=== PATIENT | male | born 1935 | race Caucasian/White ===

== ENCOUNTER 2017-03-08 18:17 | Inpatient (IN) ==
[2017-03-08 20:05] LABS: Hematocrit 26.1 % (41-53); Hemoglobin 8.3 GM/DL (13.5-17.5); Mean Corpuscular Hemoglobin 29.7 UUG (26-34); Mean Corpuscular Volume 93.5 UM3 (80-100); Mean Platelet Volume 8.8 UM3 (9.4-12.4); Platelet Count 35 T/MM3 (130-400); RDW Standard Deviation 60.3 FL (36.9-50.2); Red Blood Count 2.79 M/MM3 (4.50-5.90)
--- NOTE | 2017-03-08 20:06 | History & Physical Report ---
History of Present Illness Date: 03/08/17 HPI: is a 81 y.o. male with PMH significant for metastatic gastric cancer that he is undergoing chemo therapy for with . He recently had another cycle a few days ago. Pt presented to [facility] with n/v/d for 1-2 days and also had pancytopenia on labs. was notified and he recommended pt be transferred to [facility] [place] so oncology team could follow along. This evening pt reports he's feeling okay. Reports 3-4 diarrhea events per day in the last 1-2 days and the more coughing with sputum production the vomiting. Denies any cp, sob, f/c. Reports he's been eating well. Review of Systems Review of systems: 12 point ros negative other then what is noted in HPI PFSH Patient Stated Medical History Dental Problems Yes: dentures are loose, Dysphagia Yes Hypertension Yes Asthma Yes Ulcer Yes: couple of years ago Hx Urinary Tract Infection Yes Anemia Yes Shingles Yes Blood Transfusions Yes Chemotherapy Yes Other Yes: [facility] Gastric Cancer - Social History Smoking status: Former smoker Medications Home Medications Medication Instructions Recorded Confirmed Type Amlodipine [Norvasc] 5 mg PO DAILY 03/08/17 03/08/17 History Calcium Carbonate 600 mg PO DAILY 03/08/17 03/08/17 History Cholecalciferol [Vitamin D-3] 1 tab PO DAILY 03/08/17 03/08/17 History Cyanocobalamin (Vitamin B-12) 1 tab PO DAILY 03/08/17 03/08/17 History [Vitamin B-12] Docusate Sodium [Colace] 2 cap PO DAILY 03/08/17 03/08/17 History Ferrous Sulfate 65 mg PO DAILY 03/08/17 03/08/17 History Hydrocodone/APAP 5/325 [[place] 1 - 2 tab PO Q4HR PRN 03/08/17 03/08/17 History 5/325] Levothyroxine Tab [Synthroid] 75 mcg PO DAILY 03/08/17 03/08/17 History Magnesium Oxide [Magnesium] 400 mg PO BIDWM 03/08/17 03/08/17 History Szird-Fwzsslu-Lxadlfkr Tablet 1 tab PO DAILY 03/08/17 03/08/17 History Potassium Chloride ER Tab [K-Dur] 1 tab PO TIDWM 03/08/17 03/08/17 History PredniSONE [Deltasone] 40 mg PO WB 03/08/17 03/08/17 History Pyridostigmine [Mestinon] 30 mg PO TID 03/08/17 03/08/17 History Tamsulosin [Flomax] 0.4 mg PO HS 03/08/17 03/08/17 History Allergies Allergy/AdvReac Type Severity Reaction Status Date / Time No Known Allergies Allergy Verified 03/08/17 19:25 Exam Vital Signs: Temp Pulse Resp BP Pulse Ox 101.5 F H 106 H 20 132/76 92 03/08/17 18:46 03/08/17 18:46 03/08/17 18:46 03/08/17 18:46 03/08/17 18:46 Height: 1.65 m Weight: 59.1 kg Body Mass Index: 21.7 - Constitutional Present: no acute distress, well developed - Routine HEENT Exam Head: Present: normocephalic, atraumatic Eye: Present: EOMI ENT: Present: mucous membranes moist - Routine Respiratory Exam Present: CTA bilaterally. Absent: wheezes - Routine Cardiovascular Exam Present: RRR, murmur - Routine Abdominal Exam Present: soft, non distended, non tender - Routine Extremities Exam Present: edema. Absent: cyanosis, clubbing - Routine Skin Exam Present: intact, dry, warm - Routine Neurological Exam Present: alert, oriented X3 Assessment and Plan Assessment and Plan: Sepsis -Fever, tachycardia and tachypneava -possibly GI as pt has diarrhea vs. resp as pt is producing some sputum -[facility] abd CT showed colitis likely related to recent chemo tx -Order-->CXR, UA, blood cx's, lactate, resp viral panel, c. diff -IV fluids, vanc + cefepime + flagyl Neutropenic Fever -ANC ~0, high risk for infection -Abx per above Pancytopenia -2/2 chemo tx -INR elevated, will order DIC panel, ldh, haptoglobin, peripheral smear -Monitor Metastatic Gastric Cancer -Follows with , discussed case with -Last chemo on 03/02 Myasthenia Gravis -Stable -On prednisone at home, will stress dose per recs to 100mg Q8H hydrocortisone -Cont. pyridostigmine Hypothyroid -Cont. home levothyroxine -Check TSH HTN -Hold home meds d/t sepsis-->amlodipine Ppx -DVT-SCDs, low plts Sepsis Assessment - Evaluation Sepsis screening result: Severe Sepsis Risk Hospital Course Summary Disclaimer: The visit summary below is not to be considered part of the above Progress Note.
[2017-03-08 20:12] LABS: PTT- Partial Thrombo Time- NMC 26.8 SEC (24-36)
[2017-03-08 20:15] LABS: ALT - NMC 31 U/L (21-72); AST - NMC 15 U/L (17-59); Albumin - NMC 2.7 G/DL (3.5-5.0); Albumin/Globulin Ratio 1.3 RATIO (1.1-2.2); Alkaline Phosphatase - NMC 68 U/L (38-126); Anion Gap 9 MEQ/L (5-15); BUN/Creatinine Ratio 20 RATIO (6-26); CO2 - Carbon Dioxide - NMC 22 MEQ/L (22-30); Chloride - NMC 112 MEQ/L (98-107); Globulin 2.1 G/DL (2.4-3.6); Glomerular Filtration Rate 93; Glucose - NMC 79 MG/DL (75-110); MAG - Magnesium - NMC 1.8 MG/DL (1.6-2.3); NA - Sodium - NMC 143 MEQ/L (134-144); Osmolality,Calculated 275 MOSM/KG (261-280); TP - Total Protein - NMC 4.8 G/DL (6.3-8.2)
[2017-03-08 20:21] LABS: White Blood Count 0.3 T/MM3 (4.5-11.0)
[2017-03-08 20:22] LABS: Potassium 2.9 MEQ/L (3.6-5)
[2017-03-08] MEDS: NS 1,000 ML IV SCH (20:38)
[2017-03-08 20:45] LABS: Total Cells Counted 25 %
[2017-03-08] MEDS ORDERED: MetroNIDAZOLE PB 500 MG/100 ML BAG IV SCH (21:00)
[2017-03-08] MEDS ORDERED: PYRIDOSTIGMINE 60 MG TABLET PO SCH (21:00)
[2017-03-08] MEDS: NS 500 ML IV SCH (21:32)
[2017-03-08] MEDS: TAMSULOSIN 0.4 MG CAPSULE PO SCH (21:35)
[2017-03-08] MEDS: HYDROCORTISONE SOD SUCC 100mg/2ml INJECTION IVP SCH (21:37)
[2017-03-08 21:44] LABS: Adenovirus Negative (Negative); Bordetella pertussis Negative (Negative); Chlamydophila pneumoniae Negative (Negative); Coronavirus 229E Negative (Negative); Coronavirus HKU1 Negative (Negative); Coronavirus NL63 Negative (Negative); Coronavirus OC43 Negative (Negative); Human Metapneumovirus Negative (Negative); Human Rhino/Enterovirus Negative (Negative); Influenza A Negative (Negative); Influenza B Negative (Negative); Mycoplasma pneumoniae Negative (Negative); Parainfluenza 1 Negative (Negative); Parainfluenza 2 Negative (Negative); Parainfluenza 3 Negative (Negative); Parainfluenza 4 Negative (Negative); QC RP Pouch Internal Passed; Respiratory Syncytial Virus Negative (Negative)
[2017-03-08 21:47] LABS: Clarity,Urine CLEAR; Color, Urine YELLOW (YELLOW); Leukocyte Esterase,Urine NEGATIVE (NEGATIVE); Nitrate,Urine NEGATIVE (NEGATIVE); Urobilinogen,Urine 0.2 EU/DL (NORMAL)
[2017-03-08 21:54] LABS: Bacteria,Urine Trace (NEGATIVE); Mucus,Urine Present; RBC,Urine 0-1 /HPF (0-3)
[2017-03-08 22:15] LABS: Stl C Diff PCR Internal Ctrls Pass
[2017-03-08] MEDS: CEFEPIME 2 GM INJECTION IV SCH (22:36)
[2017-03-08 23:56] LABS: Potassium 3.1 MEQ/L (3.6-5)
[2017-03-08 23:58] LABS: Lactate - NMC 0.7 MMOL/L (0.6-2.2)
[2017-03-09 00:17] LABS: Hematocrit 23.8 % (41-53); Hemoglobin 7.5 GM/DL (13.5-17.5); Mean Corpuscular Hemoglobin 29.5 UUG (26-34); Mean Corpuscular Volume 93.7 UM3 (80-100); Mean Platelet Volume 10.2 UM3 (9.4-12.4); RDW Standard Deviation 61.8 FL (36.9-50.2); Red Blood Count 2.54 M/MM3 (4.50-5.90)
[2017-03-09 00:18] LABS: White Blood Count 0.4 T/MM3 (4.5-11.0)
[2017-03-09 00:30] LABS: TSH - NMC 5.01 MIU/L (0.47-4.68)
[2017-03-09] MEDS: CEFEPIME 2 GM INJECTION IV SCH ×2 (01:04→03:35)
[2017-03-09] MEDS: HYDROCORTISONE SOD SUCC 100mg/2ml INJECTION IVP SCH ×3 (02:01→16:46)
[2017-03-09] MEDS: VANCOMYCIN 250mg/5ml ORAL LIQ PO SCH ×4 (02:01→20:36)
[2017-03-09] MEDS: SALINE FLUSH 10ml SYRINGE IV PRN ×2 (05:04→20:37)
[2017-03-09 05:20] LABS: Hematocrit 23.6 % (41-53); Hemoglobin 7.3 GM/DL (13.5-17.5); Mean Corpuscular Hemoglobin 29.2 UUG (26-34); Mean Corpuscular Volume 94.4 UM3 (80-100); RDW Standard Deviation 62.4 FL (36.9-50.2)
[2017-03-09 05:45] LABS: White Blood Count 0.4 T/MM3 (4.5-11.0)
[2017-03-09 05:46] LABS: Platelet Count 25 T/MM3 (130-400)
[2017-03-09 06:00] LABS: ALT - NMC 23 U/L (21-72); AST - NMC 14 U/L (17-59); Albumin - NMC 2.4 G/DL (3.5-5.0); Albumin/Globulin Ratio 1.3 RATIO (1.1-2.2); Alkaline Phosphatase - NMC 60 U/L (38-126); Anion Gap 10 MEQ/L (5-15); BUN/Creatinine Ratio 21 RATIO (6-26); CO2 - Carbon Dioxide - NMC 18 MEQ/L (22-30); Calcium - NMC 7.7 MG/DL (8.4-10.2); Chloride - NMC 114 MEQ/L (98-107); Globulin 1.9 G/DL (2.4-3.6); Glomerular Filtration Rate 109; Glucose - NMC 91 MG/DL (75-110); NA - Sodium - NMC 142 MEQ/L (134-144); Osmolality,Calculated 274 MOSM/KG (261-280); Potassium 3.2 MEQ/L (3.6-5); TP - Total Protein - NMC 4.3 G/DL (6.3-8.2)
[2017-03-09 07:18] LABS: Total Cells Counted 50 %
[2017-03-09] MEDS ORDERED: PredniSONE 20 MG TABLET PO SCH (08:00)
--- NOTE | 2017-03-09 08:12 | XRay Report ---
INDICATION: neutropenic fever PROCEDURE: CHEST 2-VIEWS UPRIGHT (PA & LAT) Encounter: Initial COMPARISON: None FINDINGS: The lungs are clear without evidence of focal abnormal airspace opacity. There is no pleural effusion or pneumothorax. Left subclavian central venous port catheter in place with the tip projecting over the mid SVC. The heart size, mediastinal contours and pulmonary vascularity are within normal limits. Chronic appearing left-sided rib fractures. IMPRESSION: No acute cardiopulmonary disease. .
[2017-03-09] MEDS: CYANOCOBALAMIN (B-12) 500mcg TABLET PO SCH (08:32)
[2017-03-09] MEDS: MULTI-VITAMIN + MINERAL TABLET PO SCH (08:33)
[2017-03-09] MEDS: FERROUS SULFATE 324 MG TABLET PO SCH (08:33)
[2017-03-09] MEDS: LACTOBACILLUS (15B cfu) CAPSULE PO SCH ×2 (08:33→16:46)
[2017-03-09] MEDS: MAGNESIUM OXIDE 400 MG TABLET PO SCH ×2 (08:33→16:45)
[2017-03-09] MEDS: LEVOTHYROXINE 75 MCG TABLET PO SCH (08:33)
[2017-03-09] MEDS: CALCIUM CARBONATE 600 MG TABLET PO SCH (08:33)
[2017-03-09] MEDS: CEFEPIME 2 GM in NS 100 ML IV SCH ×2 (08:34→16:46)
[2017-03-09] MEDS: DOCUSATE SODIUM 100 MG CAPSULE PO SCH (08:34)
[2017-03-09] MEDS: PYRIDOSTIGMINE 60 MG TABLET PO SCH ×3 (08:38→16:45)
[2017-03-09] MEDS: MetroNIDAZOLE PB 500 MG/100 ML BAG IV SCH ×2 (09:32→20:37)
--- NOTE | 2017-03-09 12:00 | Progress Note ---
Subjective: Pt reports he feels much better this am. Had 2 loose BMs last night and one this am. Denies any cp, n/v, f/c. Mild cough with scant sputum. Mild abdominal pain. Objective Vital signs: Temp Pulse Resp BP Pulse Ox 98.6 F 66 20 149/67 H 98 03/09/17 07:59 03/09/17 07:59 03/09/17 07:59 03/09/17 07:59 03/09/17 07:59 Weight: 59.2 kg - Constitutional Present: no acute distress, well developed - Routine HEENT Exam Head: Present: normocephalic, atraumatic - Routine Respiratory Exam Present: CTA bilaterally. Absent: wheezes - Routine Cardiovascular Exam Present: RRR. Absent: rubs - Routine Abdominal Exam Present: soft, non distended Comments: Mildly tender diffusely - Routine Extremities Exam Present: edema. Absent: cyanosis, clubbing - Routine Skin Exam Present: intact, dry, warm - Routine Neurological Exam Present: alert, oriented X3 Results - Labs CBC & Chem 7: 03/09/17 05:01 03/09/17 05:01 Assessment and Plan (1) Sepsis Current visit: Yes Status: Acute (2) Neutropenic fever Current visit: Yes Status: Acute (3) C. difficile colitis Current visit: Yes Status: Acute (4) Pancytopenia Current visit: Yes Status: Acute (5) HTN (hypertension) Current visit: Yes Status: Chronic (6) Myasthenia gravis Current visit: Yes Status: Chronic (7) Chronic steroid use Current visit: Yes Status: Chronic (8) Hypothyroid Current visit: Yes Status: Chronic Assessment and Plan: Sepsis 2/2 C. diff colitis -Fever, tachycardia and tachypnea-->Much improved -[facility] abd CT showed colitis, C. diff positive, likely complicated by recent chemo tx -CXR without any acute pathology, UA not remarkable for infection, blood cx's NGTD, lactate nml, resp viral panel negative -IV fluids, vanc + cefepime + flagyl, can likely at least stop the vanc, will discuss with oncology Neutropenic Fever -ANC ~280, high risk -will cont. abx per above Pancytopenia -Likely 2/2 chemo tx -INR elevated, DIC panel not consistent with dic with nml ptt and fibrinogen but D-dimer is elevated -ldh wnls, haptoglobin pending, peripheral smear pending -May need blood products, i.e. platelets but will discuss with oncology -Monitor Metastatic Gastric Cancer -Follows with , discussed case with -Last chemo on 03/02 Myasthenia Gravis -Stable -On prednisone at home, will stress dose per recs to 100mg Q8H hydrocortisone -Cont. pyridostigmine Hypothyroid -Cont. home levothyroxine -TSH mildly elevated, will check t4 HTN -Hold home meds d/t sepsis-->amlodipine Ppx -DVT-SCDs, low plts Sepsis Assessment - Evaluation Sepsis screening result: Severe Sepsis Risk Hospital Course Summary Disclaimer: The visit summary below is not to be considered part of the above Progress Note. Hospital Course: 03/09/17 12:12 Pt admitted yesterday evening with sepsis from c. diff colitis and neutropenic fever. Severely neutropenic with ANC <500, on broad spectrum abx with vanc + cefepime for that plus flagyl for c. diff. INR was a bit elevated so DIC work up was done and it was mostly unremarkable but will cont. to monitor. Pt has chronic use of steroids so we stress dosed the steroids. Pt feels much better this am. Will discuss case with oncology for plan of care and for possible descalation of abx.
[2017-03-09] MEDS: NS 1,000 ML IV SCH (14:14)
[2017-03-09 15:11] VITALS: BMI 21.6
[2017-03-09] MEDS: TAMSULOSIN 0.4 MG CAPSULE PO SCH ×2 (20:36→21:15)
[2017-03-10] MEDS: HYDROCORTISONE SOD SUCC 100mg/2ml INJECTION IVP SCH ×3 (01:33→17:46)
[2017-03-10] MEDS: CEFEPIME 2 GM in NS 100 ML IV SCH ×3 (01:33→19:03)
[2017-03-10] MEDS: VANCOMYCIN 250mg/5ml ORAL LIQ PO SCH ×4 (02:21→20:34)
[2017-03-10] MEDS: NS 1,000 ML IV SCH ×2 (03:46→03:47)
[2017-03-10] MEDS: SALINE FLUSH 10ml SYRINGE IV PRN ×2 (04:24→07:01)
[2017-03-10 05:10] LABS: Hematocrit 19.9 % (41-53); Hemoglobin 6.2 GM/DL (13.5-17.5); Mean Corpuscular Hemoglobin 29.2 UUG (26-34); Mean Corpuscular Volume 93.9 UM3 (80-100); RDW Standard Deviation 60.4 FL (36.9-50.2); Red Blood Count 2.12 M/MM3 (4.50-5.90)
[2017-03-10 06:17] LABS: Platelet Count 28 T/MM3 (130-400); White Blood Count 0.3 T/MM3 (4.5-11.0)
[2017-03-10 06:20] LABS: Albumin - NMC 2.1 G/DL (3.5-5.0); Anion Gap 6 MEQ/L (5-15); BUN/Creatinine Ratio 24 RATIO (6-26); CO2 - Carbon Dioxide - NMC 19 MEQ/L (22-30); Calcium - NMC 7.6 MG/DL (8.4-10.2); Chloride - NMC 118 MEQ/L (98-107); Glomerular Filtration Rate 109; Glucose - NMC 152 MG/DL (75-110); NA - Sodium - NMC 143 MEQ/L (134-144); Osmolality,Calculated 280 MOSM/KG (261-280); Phosphorus - NMC 1.6 MG/DL (2.5-4.5); Potassium 3.6 MEQ/L (3.6-5)
[2017-03-10] MEDS ORDERED: ACETAMINOPHEN 325 MG TABLET PO ONE (06:30)
[2017-03-10] MEDS: LEVOTHYROXINE 75 MCG TABLET PO SCH (06:39)
[2017-03-10 06:53] LABS: Total Cells Counted 25 %
[2017-03-10] MEDS: PYRIDOSTIGMINE 60 MG TABLET PO SCH ×3 (09:43→17:45)
[2017-03-10] MEDS: FERROUS SULFATE 324 MG TABLET PO SCH (09:43)
[2017-03-10] MEDS: MAGNESIUM OXIDE 400 MG TABLET PO SCH ×2 (09:43→17:45)
[2017-03-10] MEDS: MULTI-VITAMIN + MINERAL TABLET PO SCH (09:44)
[2017-03-10] MEDS: LACTOBACILLUS (15B cfu) CAPSULE PO SCH ×2 (09:44→17:46)
[2017-03-10] MEDS: CALCIUM CARBONATE 600 MG TABLET PO SCH (09:44)
[2017-03-10] MEDS: CYANOCOBALAMIN (B-12) 500mcg TABLET PO SCH (09:45)
[2017-03-10] MEDS: MetroNIDAZOLE PB 500 MG/100 ML BAG IV SCH ×2 (09:51→20:35)
[2017-03-10] MEDS: DOCUSATE SODIUM 100 MG CAPSULE PO SCH (09:56)
[2017-03-10] MEDS: TBO-FILGRASTIM 480mcg/0.8ml INJECTION SQ SCH (10:57)
--- NOTE | 2017-03-10 12:04 | Progress Note ---
Subjective: Pt reports he's feeling much better, reports his BMs are starting to be more solid and he only had 2 BMs overnight. Denies any f/c, cp or sob. Objective Vital signs: Temp Pulse Resp BP Pulse Ox 97.7 F 55 L 22 133/71 99 03/10/17 07:59 03/10/17 07:59 03/10/17 07:59 03/10/17 07:59 03/10/17 07:59 Weight: 61.3 kg - Constitutional Present: no acute distress, well developed - Routine HEENT Exam Head: Present: normocephalic, atraumatic Eye: Present: EOMI ENT: Present: mucous membranes moist - Routine Respiratory Exam Present: accessory muscle use. Absent: wheezes - Routine Cardiovascular Exam Present: RRR, murmur - Routine Abdominal Exam Present: soft, non distended, non tender - Routine Extremities Exam Present: edema. Absent: cyanosis, clubbing - Routine Skin Exam Present: intact, erythema, dry - Routine Neurological Exam Present: alert, oriented X3 Results - Labs CBC & Chem 7: 03/10/17 04:22 03/10/17 04:22 Assessment and Plan (1) Sepsis Current visit: Yes Status: Acute (2) Neutropenic fever Current visit: Yes Status: Acute (3) C. difficile colitis Current visit: Yes Status: Acute (4) Pancytopenia Current visit: Yes Status: Acute (5) HTN (hypertension) Current visit: Yes Status: Chronic (6) Myasthenia gravis Current visit: Yes Status: Chronic (7) Chronic steroid use Current visit: Yes Status: Chronic (8) Hypothyroid Current visit: Yes Status: Chronic Assessment and Plan: Sepsis 2/2 C. diff colitis -Sepsis Resolved -[facility] abd [facility] showed colitis, C. diff positive, likely complicated by recent chemo tx -CXR without any acute pathology, UA not remarkable for infection, blood cx's NGTD, lactate nml, resp viral panel negative -Abx-->cefepime + flagyl + Oral vanc Neutropenic Fever -ANC 280-->192 today -will cont. abx per above Pancytopenia -Likely 2/2 chemo tx -Hgb-->down to 6.2 today, will transfuse 1u pRBC and recheck H&H in afternoon -Plt-->28, monitor closely, may need plts soon, will discuss with oncology -WBC-->0.3, ANC 192, abx per above, oncology planning on starting G-CSF -INR elevated, DIC panel not consistent with dic with nml ptt and fibrinogen but D-dimer is elevated -ldh wnls, haptoglobin high, peripheral smear pending -Monitor closely Metastatic Gastric Cancer -Follows with , discussed case with -Last chemo on 03/02 Myasthenia Gravis -Stable -On prednisone at home, will stress dose as discussed with to 100mg Q8H hydrocortisone -Cont. pyridostigmine Hypothyroid -Cont. home levothyroxine -TSH mildly elevated, will check t4 HTN -Hold home meds d/t sepsis-->amlodipine Ppx -DVT-SCDs, low plts Sepsis Assessment - Evaluation Sepsis screening result: No Definite Risk Hospital Course Summary Disclaimer: The visit summary below is not to be considered part of the above Progress Note. Hospital Course: 03/09/17 12:12 Pt admitted yesterday evening with sepsis from c. diff colitis and neutropenic fever. Severely neutropenic with ANC <500, on broad spectrum abx with vanc + cefepime for that plus flagyl for c. diff. INR was a bit elevated so DIC work up was done and it was mostly unremarkable but will cont. to monitor. Pt has chronic use of steroids so we stress dosed the steroids. Pt feels much better this am. Will discuss case with oncology for plan of care and for possible descalation of abx. 03/10/17 12:04 Pt clinically doing better with improving diarrhea and overall reports feeling better but his pancytopenia not improving. Hgb dropped to 6.2 so will give 1u pRBC, plts cont. to be in high 20s and may need platelets soon, WBC also staying around 0.3-0.4. Will cont. oral vanc and flagyl for c. diff and cefepime for severe neutropenia. Will cont. to monitor closely. Discussed case with and he will see the pt today.
[2017-03-10 12:30] LABS: Hemoglobin 6.9 GM/DL (13.5-17.5)
--- NOTE | 2017-03-10 15:03 | Consult Note ---
Oncology HPI - Data of Consult Patient: known to practice within the last 3 years <Dian Smith - 03/10/17 15:03> Consult date: 03/10/17 <Dian Smith - 03/10/17 15:03> Requesting Physician: Chio Phillip MD <Marin Mcclendon - 03/10/17 17:29> Chio Phillip MD <Dian Smith - 03/10/17 16:34> Primary Care Provider: REEMA JANE <Marin Mcclendon - 03/10/17 17:29> REEMA JANE <Dian Smith - 03/10/17 15:03> Family Provider: REEMA JANE <Marin Mcclendon - 03/10/17 17:29> REEMA JANE <Dian Smith - 03/10/17 15:03> - Consult Narrative Reason for consult: gastric cancer <Dian Smith - 03/10/17 15:03> History of present illness: Well-known patient to Dr. Mcclendon with history of gastric cancer, had recent evidence of progressive disease and was started on irinotecan, cycle 2 day 1 was given 03/02/17. He presented to the [place] emergency department with nausea,vomiting, diarrhea, and noted pancytopenia on labs. He was admitted to [facility] for continued supportive care and follow-up with oncology. Reclining in hospital bed at time of intake, nurse at bedside. He is alert and oriented. Denies pain currently. Positive nausea, feels this is more from" phlegm." Denies abdominal pain. Nurse reports hematochezia noted with his last stool. Currently is receiving a unit of packed RBCs. Patient denies nosebleeds, hematuria or other bleeding. History of Present Illness 2013: Cancer prostate and biopsy involving both lobes with perineural invasion. Rian score 3+4 for total of 7 Myasthenia gravis with exacerbation. Last exacerbation 08/2013, treated with IVIG, currently on chronic prednisone therapy 06/2003: Indeterminate thyroid nodules on ultrasound. Negative biopsy 12/2013. 01/23/16: Diagnosis of gastric cancer. Positive omental biopsy. 02/26/16: Began cisplatin and infusional 5FU 04/20/16: Neutropenia with ANC of 616. 08/23/16: Admitted to [facility] with abdominal wall cellulitis from Gastrostomy tube site. 09/08/16: Abdominal wall abscess drained 02/08/17 CT shows progressive disease with ascites, liver lesions, and increased lymph nodes. 02/23/17: Began Camptosar at reduced dose. <Dian Smith Toni - 03/10/17 17:00> Review of Systems - Constitutional Constitutional: Present: anorexia, fatigue, weakness <Dian Smith Toni - 16:34> - EENT Eyes: Absent: diplopia, pain <Dian Smith - 03/10/17 16:34> - Cardiovascular Cardiovascular: Present: dyspnea on exertion. Absent: palpitations <Dian Smith Toni - 03/10/17 16:34> - Respiratory Respiratory: Present: cough, dyspnea on exertion. Absent: wheezing <Dian Smith Toni - 03/10/17 16:34> - Gastrointestinal Gastrointestinal: Present: hematochezia (nurse reports loose dark stool with obvious bloody color surrounding in the toilet), nausea. Absent: abdominal pain <Dian Smith Toni - 03/10/17 16:34> [facility] Patient Stated Medical History Dental Problems Yes: dentures are loose, Dysphagia Yes Hypertension Yes Asthma Yes Ulcer Yes: couple of years ago Hx Urinary Tract Infection Yes Anemia Yes Shingles Yes Blood Transfusions Yes Chemotherapy Yes Other Yes: [place] <Marin Mcclendon - 03/10/17 17:29> Patient Stated Medical History Dental Problems Yes: dentures are loose, Dysphagia Yes Hypertension Yes Asthma Yes Ulcer Yes: couple of years ago Hx Urinary Tract Infection Yes Anemia Yes Shingles Yes Blood Transfusions Yes Chemotherapy Yes Other Yes: [place] <Dian Smith Toni - 03/10/17 15:03> - Social History Smoking status: Former smoker <Dian Smith Toni - 03/10/17 15:03> Medications Home Medications Medication Instructions Recorded Confirmed Type Amlodipine [Norvasc] 5 mg PO DAILY 03/08/17 03/08/17 History Calcium Carbonate 600 mg PO DAILY 03/08/17 03/08/17 History Cholecalciferol [Vitamin D-3] 1 tab PO DAILY 03/08/17 03/08/17 History Cyanocobalamin (Vitamin B-12) 1 tab PO DAILY 03/08/17 03/08/17 History [Vitamin B-12] Docusate Sodium [Colace] 2 cap PO DAILY 03/08/17 03/08/17 History Ferrous Sulfate 65 mg PO DAILY 03/08/17 03/08/17 History Hydrocodone/APAP 5/325 [[place] 1 - 2 tab PO Q4HR PRN 03/08/17 03/08/17 History 5/325] Levothyroxine Tab [Synthroid] 75 mcg PO DAILY 03/08/17 03/08/17 History Magnesium Oxide [Magnesium] 400 mg PO BIDWM 03/08/17 03/08/17 History Vebup-Unyvder-Mzljhukv Tablet 1 tab PO DAILY 03/08/17 03/08/17 History Potassium Chloride ER Tab [K-Dur] 1 tab PO TIDWM 03/08/17 03/08/17 History PredniSONE [Deltasone] 40 mg PO WB 03/08/17 03/08/17 History Pyridostigmine [Mestinon] 30 mg PO TID 03/08/17 03/08/17 History Tamsulosin [Flomax] 0.4 mg PO HS 03/08/17 03/08/17 History <Marin Mcclendon - 03/10/17 17:29> Allergies Allergy/AdvReac Type Severity Reaction Status Date / Time No Known Allergies Allergy Verified 03/08/17 19:25 <Marin Mcclendon - 03/10/17 17:29> Exam Vital signs: Temp Pulse Resp BP Pulse Ox 97.4 F 61 16 151/79 H 100 03/10/17 16:00 03/10/17 16:00 03/10/17 16:00 03/10/17 16:00 03/10/17 16:00 <Marin Mcclendon - 03/10/17 17:29> Temp Pulse Resp BP Pulse Ox 97.6 F 61 18 138/74 97 03/10/17 11:49 03/10/17 11:49 03/10/17 11:49 03/10/17 11:49 03/10/17 11:49 <Dian Smith - 03/10/17 15:03> - Constitutional mild distress, well nourished <Dian Smith - 03/10/17 17:00> - Routine HEENT Exam Head: Present: normocephalic <Dian Smith L - 03/10/17 17:00> Eye: Present: EOMI <Dian Smith - 03/10/17 17:00> ENT: Present: mucous membranes moist <Dian Smith - 03/10/17 17:00> - Routine Neck Exam Present: supple. Absent: lymphadenopathy <Dian Smith - 03/10/17 17:00> - Routine Respiratory Exam Present: decreased breath sounds. Absent: wheezes, crackles <Dian Smith - 03/10/17 17:00> - Routine Cardiovascular Exam Present: RRR. Absent: no murmur <Dian Smith - 03/10/17 17:00> - Routine Abdominal Exam Present: soft. Absent: tenderness, non distended, organomegaly <Dian Smith - 03/10/17 17:00> - Routine Extremities Exam Present: full ROM. Absent: no edema <Dian Smith - 03/10/17 17:00> - Routine Skin Exam Present: intact, dry, warm <Dian Smith - 03/10/17 17:00> - Routine Neurological Exam Present: alert, oriented X3, moving all extremities <Dian Smith - 17:00> - Routine Psychiatric Exam Present: normal affect, cooperative, good insight <Dian Smith - 03/10/17 17:00> Oncology Results - Labs CBC & Chem 7: 03/10/17 16:06 03/10/17 04:22 <Marin Mcclendon - 03/10/17 17:29> Labs: Short CBC 03/10/17 03/10/17 03/10/17 Range/Units 04:22 12:12 16:06 WBC 0.3 L* (4.5-11.0) T/MM3 Hgb 6.2 L D 6.9 L D 8.1 L D (13.5-17.5) GM/DL Hct 19.9 L D 25.3 L D (41-53) % Plt Count 28 L* (130-400) T/MM3 BMP 03/10/17 04:22 Sodium 143 Potassium 3.6 Chloride 118 H Carbon Dioxide 19 L BUN 17.0 Creatinine 0.7 L Glucose 152 H Calcium 7.6 L Liver Function 03/10/17 Range/Units 04:22 Albumin 2.1 L (3.5-5.0) G/DL <Marin Mcclendon - 03/10/17 17:29> Short CBC 03/10/17 03/10/17 Range/Units 04:22 12:12 WBC 0.3 L* (4.5-11.0) T/MM3 Hgb 6.2 L D 6.9 L D (13.5-17.5) GM/DL Hct 19.9 L D (41-53) % Plt Count 28 L* (130-400) T/MM3 BMP 03/10/17 04:22 Sodium 143 Potassium 3.6 Chloride 118 H Carbon Dioxide 19 L BUN 17.0 Creatinine 0.7 L Glucose 152 H Calcium 7.6 L Liver Function 03/10/17 Range/Units 04:22 Albumin 2.1 L (3.5-5.0) G/DL <Dian Smith - 03/10/17 15:03> Assessment and Plan (1) Neutropenic fever Current visit: Yes Status: Acute (2) Pancytopenia Current visit: Yes Status: Acute (3) C. difficile colitis Current visit: Yes Status: Acute (4) Gastric cancer Current visit: Yes Status: Acute <Dian Smith - 03/10/17 16:44> (1) Neutropenic fever Current visit: Yes Status: Acute (2) C. difficile colitis Current visit: Yes Status: Acute (3) Pancytopenia Current visit: Yes Status: Acute (4) Gastric cancer Current visit: Yes Status: Acute <Marin Mcclendon - 03/10/17 17:29> Assessment and Plan: 1. C. difficile colitis with inflammation of the colon no recent antibiotics. 2. Gastric carcinoma with progressive disease with ascites and omental implants on CT scan from mid January 2017 initial therapy was with cisplatin 5-FU now with progressive disease on Camptosar. Camptosar administered on 03/02/17 at 2 level dose reduction because of prior neutropenia with Camptosar on 02/11/17. Patient is homozygous for [id number]. initial dose was reduced from 150-1 25/m. Results of this came back after first dose. He did have neutropenia and thrombocytopenia with a first dose. Second dose was given at 100 mg/m. This also can be contributing to his diarrhea. 3. Severe neutropenia with colitis. Cultures negative so far. On broad-spectrum antibiotics. Added G-CSF today. 4. Thrombocytopenia. This is multifactorial secondary to his disease. 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 Platelets currently 20 5K. We'll continue to follow closely. 5. Anemia secondary to probable GI blood loss and chemotherapy. Status post transfusion today. 6. Myasthenia gravis currently on Mestinon and prednisone. He causes of chronic prednisone use we'll use stress dose steroids. 7. History of prostatic carcinoma status post radiation therapy with normal PSA in December 2016 8. Ascites and omental seeding from his gastric carcinoma with increased pain secondary to above. He presented in January 2016 with positive omental biopsy, gastric outlet obstruction requiring feeding tube and began chemotherapy February 2016 with cis-[place]. Recommendations: Follow counts closely with blood and platelet support. G-CSF for neutropenia. May need to immune globulin for thrombocytopenia if we feels that his ITP is recurrent As colon is significantly inflamed and he is neutropenic would use systemic antibiotics and agree with cefepime and metronidazole IV. Currently on oral vancomycin for C. difficile Begin aggressive physical therapy soon as possible to prevent worsening weakening from his myasthenia <Marin Mcclendon - 03/10/17 17:29> Continue supportive care. Preliminary blood cultures negative. GCSF dose given today. Will follow counts closely <Dian Smith - 03/10/17 17:00> Sepsis Assessment - Evaluation Sepsis screening result: No Definite Risk <Dian Smith - 03/10/17 15:03>
[2017-03-10] MEDS: ONDANSETRON 4 MG/2 ML INJECTION IVP PRN (15:44)
[2017-03-10 16:39] LABS: Hematocrit 25.3 % (41-53); Hemoglobin 8.1 GM/DL (13.5-17.5)
[2017-03-10] MEDS: TAMSULOSIN 0.4 MG CAPSULE PO SCH (20:34)
[2017-03-10] MEDS ORDERED: PANTOPRAZOLE 40 MG TABLET PO ONE (20:49)
[2017-03-11] MEDS: CEFEPIME 2 GM in NS 100 ML IV SCH ×3 (00:31→17:06)
[2017-03-11] MEDS: HYDROCORTISONE SOD SUCC 100mg/2ml INJECTION IVP SCH ×3 (01:25→17:07)
[2017-03-11] MEDS: VANCOMYCIN 250mg/5ml ORAL LIQ PO SCH ×4 (03:29→21:42)
[2017-03-11] MEDS: LEVOTHYROXINE 75 MCG TABLET PO SCH (05:33)
[2017-03-11 05:37] LABS: Hematocrit 26.2 % (41-53); Hemoglobin 8.5 GM/DL (13.5-17.5); Mean Corpuscular Hemoglobin 29.2 UUG (26-34); RDW Standard Deviation 58.9 FL (36.9-50.2); Red Blood Count 2.91 M/MM3 (4.50-5.90)
[2017-03-11 05:42] LABS: Platelet Count 22 T/MM3 (130-400); White Blood Count 0.2 T/MM3 (4.5-11.0)
[2017-03-11 06:04] LABS: Albumin - NMC 2.4 G/DL (3.5-5.0); Anion Gap 6 MEQ/L (5-15); BUN/Creatinine Ratio 27 RATIO (6-26); CO2 - Carbon Dioxide - NMC 20 MEQ/L (22-30); Calcium - NMC 8.1 MG/DL (8.4-10.2); Chloride - NMC 118 MEQ/L (98-107); Glomerular Filtration Rate 130; Glucose - NMC 112 MG/DL (75-110); MAG - Magnesium - NMC 2.3 MG/DL (1.6-2.3); NA - Sodium - NMC 144 MEQ/L (134-144); Osmolality,Calculated 279 MOSM/KG (261-280); Phosphorus - NMC 2.1 MG/DL (2.5-4.5); Potassium 3.3 MEQ/L (3.6-5)
[2017-03-11 06:40] LABS: Nucleated Red Blood Cells 1; Total Cells Counted 50 %
[2017-03-11] MEDS: CYANOCOBALAMIN (B-12) 500mcg TABLET PO SCH (09:53)
[2017-03-11] MEDS: TBO-FILGRASTIM 480mcg/0.8ml INJECTION SQ SCH (09:53)
[2017-03-11] MEDS: MetroNIDAZOLE PB 500 MG/100 ML BAG IV SCH ×2 (09:53→21:44)
[2017-03-11] MEDS: FERROUS SULFATE 324 MG TABLET PO SCH (09:54)
[2017-03-11] MEDS: MULTI-VITAMIN + MINERAL TABLET PO SCH (09:54)
[2017-03-11] MEDS: PYRIDOSTIGMINE 60 MG TABLET PO SCH ×3 (09:54→17:10)
[2017-03-11] MEDS: LACTOBACILLUS (15B cfu) CAPSULE PO SCH ×2 (09:54→17:08)
[2017-03-11] MEDS: CALCIUM CARBONATE 600 MG TABLET PO SCH (09:55)
[2017-03-11] MEDS: DOCUSATE SODIUM 100 MG CAPSULE PO SCH (09:55)
[2017-03-11] MEDS: MAGNESIUM OXIDE 400 MG TABLET PO SCH ×2 (09:55→17:09)
[2017-03-11] MEDS: PHOSPHORUS 250 MG TABLET PO SCH ×3 (12:22→21:44)
--- NOTE | 2017-03-11 13:04 | Progress Note ---
Subjective: Pt reports he's doing about the same as yesterday, reports 2 semi-formed BMs overnight. Denies any f/c, n/v, cp or sob. Objective Vital signs: Temp Pulse Resp BP Pulse Ox 96.1 F L 62 17 154/79 H 99 03/11/17 08:00 03/11/17 08:00 03/11/17 08:00 03/11/17 08:00 03/11/17 08:00 Weight: 61.5 kg - Constitutional Present: mild distress, well nourished - Routine HEENT Exam Head: Present: normocephalic, atraumatic Eye: Present: EOMI - Routine Respiratory Exam Present: CTA bilaterally. Absent: wheezes - Routine Cardiovascular Exam Present: RRR, no murmur - Routine Abdominal Exam Present: soft, non tender - Routine Extremities Exam Present: edema. Absent: cyanosis, clubbing - Routine Skin Exam Present: intact, dry. Absent: rash - Routine Neurological Exam Present: alert, oriented X3 Results - Labs CBC & Chem 7: 03/11/17 05:15 03/11/17 05:15 Assessment and Plan (1) Sepsis Current visit: Yes Status: Acute (2) Neutropenic fever Current visit: Yes Status: Acute (3) C. difficile colitis Current visit: Yes Status: Acute (4) Pancytopenia Current visit: Yes Status: Acute (5) HTN (hypertension) Current visit: Yes Status: Chronic (6) Myasthenia gravis Current visit: Yes Status: Chronic (7) Chronic steroid use Current visit: Yes Status: Chronic (8) Hypothyroid Current visit: Yes Status: Chronic Assessment and Plan: Sepsis 2/2 C. diff colitis -Sepsis Resolved -[facility] abd CT showed colitis, C. diff positive, likely complicated by recent chemo tx -CXR without any acute pathology, UA not remarkable for infection, blood cx's NGTD, lactate nml, resp viral panel negative -Abx-->cefepime D4 + flagyl D4 + Oral vanc D3 Neutropenic Fever -Fever resolved with c. diff tx -ANC 280-->192-->104 today -will cont. abx per above Pancytopenia -Likely 2/2 chemo tx -Hgb-->improved from 6.2-->8.5 this am, s/p 1u pRBC, monitor -Plt-->22, trending down, monitor closely, will give plts if <20, will discuss with oncology -WBC-->0.4-->0.3-->0.2 today, abx per above, filgrastim started yesterday per Hem/onc -INR elevated, DIC panel not consistent with dic with nml ptt and fibrinogen but D-dimer is elevated -ldh wnls, haptoglobin high, peripheral smear pending -Monitor closely Metastatic Gastric Cancer -Follows with , discussed case with -Last chemo on 03/02 Myasthenia Gravis -Stable -On prednisone at home, will stress dose as discussed with to 100mg Q8H hydrocortisone -Cont. pyridostigmine Hypothyroid -Cont. home levothyroxine -TSH mildly elevated, T4 pending HTN -Hold home meds d/t sepsis-->amlodipine -Can likely restart in the next 1-2 days depending on BPs Ppx -DVT-SCDs, low plts Sepsis Assessment - Evaluation Sepsis screening result: No Definite Risk Hospital Course Summary Disclaimer: The visit summary below is not to be considered part of the above Progress Note. Hospital Course: 03/09/17 12:12 Pt admitted yesterday evening with sepsis from c. diff colitis and neutropenic fever. Severely neutropenic with ANC <500, on broad spectrum abx with vanc + cefepime for that plus flagyl for c. diff. INR was a bit elevated so DIC work up was done and it was mostly unremarkable but will cont. to monitor. Pt has chronic use of steroids so we stress dosed the steroids. Pt feels much better this am. Will discuss case with oncology for plan of care and for possible descalation of abx. 03/10/17 12:04 Pt clinically doing better with improving diarrhea and overall reports feeling better but his pancytopenia not improving. Hgb dropped to 6.2 so will give 1u pRBC, plts cont. to be in high 20s and may need platelets soon, WBC also staying around 0.3-0.4. Will cont. oral vanc and flagyl for c. diff and cefepime for severe neutropenia. Will cont. to monitor closely. Discussed case with and he will see the pt today. 06/23/17 13:11 Pt clinically stable, pancytopenia continues to worsen although pt looks better from infectious standpoint, filgastrim started yesterday, will give blood products as appropriate, cont. abx tx for c. diff and severe neutropenia, will cont. to monitor closely, case discussed with .
[2017-03-11] MEDS: ONDANSETRON 4 MG/2 ML INJECTION IVP PRN (14:04)
[2017-03-11] MEDS: SALINE FLUSH 10ml SYRINGE IV PRN (14:06)
--- NOTE | 2017-03-11 15:12 | Progress Note ---
Oncology Subjective Reclining in hospital bed, alone in room. Alert and oriented 3. Denies pain currently, no fever, chills, shortness of air, cough. Feels "cold"appetite decreased, but is taking oral food and fluids. Voiding normally. Loose/watery stools persist, but not as much quantity. Note, blood draw about an hour ago, has oozing blood from right antecubital site. Nurse places compression bandage now. General: No fever, no night sweats Eyes: No redness, no pain, no diplopia ENT: No mouth sores, no trouble swallowing Cardiac: No chest pain no palpitations Pulmonary: No cough, no shortness of breath, no wheezing Abdomen: Positive diarrhea : No urgency, frequency, dysuria, or hematuria Musculoskeletal: No arthritis, no myalgias Neurological: No headaches, no focal weakness Skin: No rash, no sores Psychiatric: No anxiety, no depression <Dian Smith - 03/11/17 15:18> Exam Vital signs: Temp Pulse Resp BP Pulse Ox 98.2 F 74 16 154/74 H 96 03/12/17 03:00 03/12/17 03:00 03/12/17 03:00 03/12/17 03:00 03/12/17 03:00 <Marin Mcclendon - 03/12/17 05:24> Temp Pulse Resp BP Pulse Ox 96.1 F L 62 17 154/79 H 99 03/11/17 08:00 03/11/17 08:00 03/11/17 08:00 03/11/17 08:00 03/11/17 08:00 <Dian Smith - 03/11/17 15:18> - Constitutional no acute distress, well nourished, well developed, cooperative <Dian Smith 03/11/17 15:18> - Routine HEENT Exam Head: Present: normocephalic <Dian Smith 03/11/17 15:18> Eye: Present: EOMI (conjunctiva pale) <Dian Smith 03/11/17 15:18> ENT: Present: mucous membranes dry <Dian Smith 03/11/17 15:18> - Routine Neck Exam Present: supple. Absent: lymphadenopathy <Dian Smith - 03/11/17 15:18> - Routine Respiratory Exam Present: decreased breath sounds. Absent: respiratory distress, wheezes, crackles <Dian Smith - 03/11/17 15:18> - Routine Cardiovascular Exam Present: RRR. Absent: no murmur <Dian Smith - 03/11/17 15:18> - Routine Abdominal Exam Present: soft, non tender. Absent: non distended <Dian Smith - 03/11/17 15:18> - Routine Extremities Exam Absent: no edema, full ROM <Dian Smith - 03/11/17 15:18> - Routine Skin Exam Present: intact. Absent: rash <Dian Smith - 03/11/17 15:18> - Routine Neurological Exam Present: alert, oriented X3, moving all extremities. Absent: sensory deficit, motor deficit <Dian Smith - 03/11/17 15:18> - Routine Psychiatric Exam Present: normal affect, normal thought process <Dian Smith 03/11/17 15: 18> Oncology Results - Labs CBC & Chem 7: 03/11/17 05:15 03/11/17 05:15 <Marin Mcclendon - 03/12/17 05:24> Labs: Short CBC 03/11/17 Range/Units 05:15 WBC 0.2 L* (4.5-11.0) T/MM3 Hgb 8.5 L (13.5-17.5) GM/DL Hct 26.2 L (41-53) % Plt Count 22 L* (130-400) T/MM3 [facility] 03/11/17 05:15 Sodium 144 Potassium 3.3 L Chloride 118 H Carbon Dioxide 20 L BUN 16.0 Creatinine 0.6 L Glucose 112 H Calcium 8.1 L Liver Function 03/11/17 Range/Units 05:15 Albumin 2.4 L (3.5-5.0) G/DL <Marin Mcclendon - 03/12/17 05:24> Short CBC 03/10/17 03/11/17 Range/Units 16:06 05:15 WBC 0.2 L* (4.5-11.0) T/MM3 Hgb 8.1 L D 8.5 L (13.5-17.5) GM/DL Hct 25.3 L D 26.2 L (41-53) % Plt Count 22 L* (130-400) T/MM3 BMP 03/11/17 05:15 Sodium 144 Potassium 3.3 L Chloride 118 H Carbon Dioxide 20 L BUN 16.0 Creatinine 0.6 L Glucose 112 H Calcium 8.1 L Liver Function 03/11/17 Range/Units 05:15 Albumin 2.4 L (3.5-5.0) G/DL <Dian Smith L - 03/11/17 15:18> Assessment and Plan (1) Neutropenic fever Status: Acute Current Visit: Yes (2) Pancytopenia Status: Acute Current Visit: Yes (3) C. difficile colitis Status: Acute Current Visit: Yes (4) Gastric cancer Status: Acute Current Visit: Yes <Dian Smith L - 03/11/17 15:25> (1) Neutropenic fever Status: Acute Current Visit: Yes (2) C. difficile colitis Status: Acute Current Visit: Yes (3) Pancytopenia Status: Acute Current Visit: Yes (4) Gastric cancer Status: Acute Current Visit: Yes <Marin Mcclendon - 03/12/17 05:24> Assessment and Plan: Late entry. Patient seen at 12:45 pm on 03/11/17. Agree with documentation of Florencia HAYES. Discussed with Hospitalist. ANC 200 on G CSF. Greater than first cycle at higher dose. On G CSF. Will repeat blood cultures and would be concerned about fungemia with persistent neutropenia on antibiotics. Will follow counts and if not better consider antifungal therapy. Vital signs are stable and abd exam stable. Diarrhea better but nutritional intake not the best. Continue supportive care. I participated in the development of the plan of care with this patient. <Marin Mcclendon - 03/12/17 05:24> 03/11/2017 1. C. difficile colitis with inflammation of the colon no recent antibiotics. 2. Gastric carcinoma with progressive disease with ascites and omental implants on CT scan from mid January 2017 initial therapy was with cisplatin 5-FU now with progressive disease on Camptosar. Camptosar administered on 03/02/17 at 2 level dose reduction because of prior neutropenia with Camptosar on 02/11/17. Patient is homozygous for UTUA1G. initial dose was reduced from 150-1 25/m. Results of this came back after first dose. He did have neutropenia and thrombocytopenia with a first dose. Second dose was given at 100 mg/m. This also can be contributing to his diarrhea. 3. Severe neutropenia with colitis. Cultures negative so far. On broad-spectrum antibiotics. Added G-CSF yesterday, give daily. 4. Thrombocytopenia. This is multifactorial secondary to his disease. 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 Platelets 22K today. We'll continue to follow closely. 5. Anemia secondary to probable GI blood loss and chemotherapy. Status post transfusion 1 unit packed RBCs yesterday. Hemoglobin 8.5 today 6. Myasthenia gravis currently on Mestinon and prednisone. He causes of chronic prednisone use we'll use stress dose steroids. 7. History of prostatic carcinoma status post radiation therapy with normal PSA in December 2016 8. Ascites and omental seeding from his gastric carcinoma with increased pain secondary to above. He presented in January 2016 with positive omental biopsy, gastric outlet obstruction requiring feeding tube and began chemotherapy February 2016 with cis-[place]. Currently taking food and fluids orally; denies abdominal pain today. Plan Continue supportive care, continue GCSF, and close monitoring of CBC. May need to give immune globulin for thrombocytopenia if feel that ITP is recurrent Continue cefepime and metronidazole IV. Currently on oral vancomycin for C. difficile Begin aggressive physical therapy soon as possible to prevent worsening weakening from his myasthenia <Dian Smith - 03/11/17 15:33> - Time Spent With Patient Total time spent is greater than 50% in coordination of care (as documented) at patient's floor/unit and/or counseling patient: <aMrin Mcclendon - 03/12/17 05:24> Total time spent is greater than 50% in coordination of care (as documented) at patient's floor/unit and/or counseling patient: <Dian Smith - 03/11/17 15:18> 25 - 35 minutes <Dian Smith - 03/11/17 15:25> Sepsis Assessment - Evaluation Sepsis screening result: No Definite Risk <Dian Smith - 03/11/17 15:18>
[2017-03-11] MEDS ORDERED: PANTOPRAZOLE 40 MG TABLET PO ONE (20:18)
[2017-03-11] MEDS: TAMSULOSIN 0.4 MG CAPSULE PO SCH (21:42)
[2017-03-11] MEDS: HYDROCODONE/APAP 5mg/325mg TABLET PO PRN (21:43)
[2017-03-11] MEDS: NS 500 ML IV SCH (23:10)
[2017-03-12] MEDS: CEFEPIME 2 GM in NS 100 ML IV SCH ×3 (00:28→16:46)
[2017-03-12] MEDS: HYDROCORTISONE SOD SUCC 100mg/2ml INJECTION IVP SCH ×3 (00:28→18:35)
[2017-03-12] MEDS: VANCOMYCIN 250mg/5ml ORAL LIQ PO SCH ×4 (03:35→21:11)
[2017-03-12 05:31] LABS: Hematocrit 25.5 % (41-53); Hemoglobin 8.5 GM/DL (13.5-17.5); Mean Corpuscular Hemoglobin 29.8 UUG (26-34); Mean Corpuscular Volume 89.5 UM3 (80-100); Platelet Count 30 T/MM3 (130-400); RDW Standard Deviation 57.9 FL (36.9-50.2); Red Blood Count 2.85 M/MM3 (4.50-5.90)
[2017-03-12 05:57] LABS: Albumin - NMC 2.3 G/DL (3.5-5.0); Anion Gap 9 MEQ/L (5-15); BUN/Creatinine Ratio 25 RATIO (6-26); CO2 - Carbon Dioxide - NMC 21 MEQ/L (22-30); Calcium - NMC 7.9 MG/DL (8.4-10.2); Chloride - NMC 115 MEQ/L (98-107); Glomerular Filtration Rate 130; Glucose - NMC 143 MG/DL (75-110); NA - Sodium - NMC 145 MEQ/L (134-144); Osmolality,Calculated 282 MOSM/KG (261-280); Phosphorus - NMC 2.8 MG/DL (2.5-4.5)
[2017-03-12 06:07] LABS: White Blood Count 0.2 T/MM3 (4.5-11.0)
[2017-03-12 06:12] LABS: Potassium 2.4 MEQ/L (3.6-5)
[2017-03-12] MEDS: LEVOTHYROXINE 75 MCG TABLET PO SCH (06:33)
[2017-03-12 07:45] LABS: Total Cells Counted 50 %
[2017-03-12] MEDS: SALINE FLUSH 10ml SYRINGE IV PRN ×4 (08:12→15:06)
[2017-03-12] MEDS: POTASSIUM CHLORIDE PREMIX 10 MEQ/100 ML BAG IV SCH ×7 (08:49→20:54)
[2017-03-12] MEDS: CYANOCOBALAMIN (B-12) 500mcg TABLET PO SCH (08:50)
[2017-03-12] MEDS: CALCIUM CARBONATE 600 MG TABLET PO SCH (08:51)
[2017-03-12] MEDS: MAGNESIUM OXIDE 400 MG TABLET PO SCH ×2 (08:51→18:35)
[2017-03-12] MEDS: MULTI-VITAMIN + MINERAL TABLET PO SCH (08:51)
[2017-03-12] MEDS: LACTOBACILLUS (15B cfu) CAPSULE PO SCH ×2 (08:51→18:34)
[2017-03-12] MEDS: FERROUS SULFATE 324 MG TABLET PO SCH (08:52)
[2017-03-12] MEDS: PHOSPHORUS 250 MG TABLET PO SCH ×3 (08:54→18:35)
[2017-03-12] MEDS: PYRIDOSTIGMINE 60 MG TABLET PO SCH ×3 (08:54→18:34)
[2017-03-12] MEDS: DOCUSATE SODIUM 100 MG CAPSULE PO SCH (09:01)
[2017-03-12] MEDS: NS FLUSH BAG 500ml IV PRN (09:08)
[2017-03-12] MEDS: TBO-FILGRASTIM 480mcg/0.8ml INJECTION SQ SCH (09:19)
[2017-03-12] MEDS: ONDANSETRON 4 MG/2 ML INJECTION IVP PRN ×2 (09:34→20:54)
[2017-03-12] MEDS: MetroNIDAZOLE PB 500 MG/100 ML BAG IV SCH (10:03)
--- NOTE | 2017-03-12 14:11 | Progress Note ---
Oncology Subjective wm on neutropenic precautions. awake responsive, helpful. no new c/o afeb Exam Vital signs: Temp Pulse Resp BP Pulse Ox 96.7 F L 67 17 158/86 H 97 03/12/17 07:00 03/12/17 07:00 03/12/17 07:00 03/12/17 07:00 03/12/17 07:00 Narrative: awake and respopnsive pt jhas significant oral candidiasis. - Constitutional no acute distress, cooperative - Routine HEENT Exam Head: Present: normocephalic, atraumatic Eye: Present: EOMI, PERRL ENT: Present: mucous membranes moist Comments: pos for oral cnadidiasis, extneisve - Routine Respiratory Exam Present: CTA bilaterally, diminished air movement - Routine Cardiovascular Exam Present: RRR, no murmur - Routine Abdominal Exam Present: soft, non tender - Routine Extremities Exam Present: no edema - Routine Skin Exam Present: intact, dry - Routine Neurological Exam Present: alert, oriented X3, CN II-XII intact - Routine Psychiatric Exam Present: normal affect Oncology Results - Labs CBC & Chem 7: 03/12/17 04:25 03/12/17 04:25 Labs: Short CBC 03/12/17 Range/Units 04:25 WBC 0.2 L* (4.5-11.0) T/MM3 Hgb 8.5 L (13.5-17.5) GM/DL Hct 25.5 L (41-53) % Plt Count 30 L D (130-400) T/MM3 BMP 03/12/17 04:25 Sodium 145 H Potassium 2.4 L* D Chloride 115 H Carbon Dioxide 21 L BUN 15.0 Creatinine 0.6 L Glucose 143 H Calcium 7.9 L Liver Function 03/12/17 Range/Units 04:25 Albumin 2.3 L (3.5-5.0) G/DL Assessment and Plan (1) Neutropenic fever Status: Acute Assessment and plan: pt continues of IV maxipine and IV flagyl Pt also on PO vancomycin. Plan to increase granix to 600/day plan to add diflucan 200 IV today and 100 IV qd continue supportive care/hydration/k+replacemnt/neutropenic precautions blood c/s neg to date Current Visit: Yes (2) C. difficile colitis Status: Acute Assessment and plan: continue PO vanc and IV flagyl continue potassium replacemnt Current Visit: Yes (3) Pancytopenia Status: Acute Assessment and plan: increase granix to 600/day monitor K+ Current Visit: Yes (4) Gastric cancer Status: Acute Assessment and plan: treatment on hold Current Visit: Yes Assessment and Plan: WBC is 200, unchanged. plan to add increased neupogen and to add diflucan. Blood c/s neg to date. - Time Spent With Patient Total time spent is greater than 50% in coordination of care (as documented) at patient's floor/unit and/or counseling patient: less than 15 minutes (....) Sepsis Assessment - Evaluation Sepsis screening result: No Definite Risk
[2017-03-12] MEDS ORDERED: FLUCONAZOLE PB 200 MG/100 ML BAG IV ONE (14:15)
[2017-03-12 15:40] LABS: Potassium 2.7 MEQ/L (3.6-5)
--- NOTE | 2017-03-12 16:28 | Progress Note ---
Subjective: Mr. Spears complaint abdominal cramping. He reports having 3 loose stools prior to my visit today and nursing indicated that stool volume is fairly small. It is unclear from the EMR how many stools the patient had yesterday. He denies dyspnea or fever but reports having spit up a small amount of sputum earlier. He denies nausea or vomiting. Appetite is poor. He's had no lightheadedness. Objective Vital signs: Temp Pulse Resp BP Pulse Ox 96.7 F L 95 18 150/85 H 100 03/12/17 15:12 03/12/17 15:12 03/12/17 15:12 03/12/17 15:12 03/12/17 15:12 EXAM [id number] male, NAD HEENT-conjunctiva clear, sclera anicteric, white plaques on tongue Lungs-respirations nonlabored, good airflow, breath sounds clear anterior/ posteriorly Cardiac-regular rhythm, S1-S2, 2/6 systolic murmur Abd-soft, mild generalized tenderness, moderately distended but not tight, bowel sounds present Ext-trace edema Neuro-moving all extremities well, ambulates without difficulty Psych-O x 3 - Weight: 61 kg Results - Labs CBC & Chem 7: 03/12/17 04:25 03/12/17 15:05 Labs: Segs 40, bands 4, lymphocytes 48, monocytes 4, eosinophils 4 Creatinine 0.6, potassium 2.4 earlier today, magnesium 2.1, phosphorus 2.8 Blood cultures -03/11 negative after 1 day, blood cultures -03/12 negative after 3 days Assessment and Plan (1) Sepsis Current visit: Yes Status: Acute (2) Neutropenic fever Current visit: Yes Status: Acute (3) C. difficile colitis Current visit: Yes Status: Acute (4) Hypokalemia Current visit: Yes Status: Acute (5) Pancytopenia Current visit: Yes Status: Acute (6) HTN (hypertension) Current visit: Yes Status: Chronic (7) Myasthenia gravis Current visit: Yes Status: Chronic (8) Chronic steroid use Current visit: Yes Status: Chronic (9) Hypothyroid Current visit: Yes Status: Chronic (10) Gastric cancer Current visit: Yes Status: Chronic Assessment and Plan: Sepsis 2/2 C. diff colitis -Clinically stable -CXR without any acute pathology, UA not remarkable for infection, blood cx's NGTD, lactate nml, resp viral panel negative -Abx-->cefepime D5 + flagyl D5 + Oral vanc D4 Neutropenic Fever -Fever resolved with c. diff tx -ANC 280-->192-->104-->96 today -will cont. abx per above Pancytopenia -Likely 2/2 chemo tx -Hgb--stable, s/p 1u pRBC, monitor -Plt-->30K, improved today, monitor closely, will give plts if <20, will discuss with oncology -WBC-->0.4-->0.3-->0.2-->0.2 today, abx per above, filgrastim started 03/10 per Hem/onc-dose increased to 600 g daily per oncology request -INR elevated, DIC panel not consistent with dic with nml ptt and fibrinogen but D-dimer is elevated -LDH wnls, haptoglobin high, peripheral smear pending Metastatic Gastric Cancer -Follows with , discussed case with Dr. Clements -Last chemo on 03/02 Myasthenia Gravis -Stable -On prednisone at home, stress dose steroids with 100mg Q8H hydrocortisone initiated on admission-taper to 50 mg Q8H -Cont. pyridostigmine Hypothyroid -Cont. home levothyroxine -TSH mildly elevated, T4 pending HTN -Amlodipine held on admission, blood pressure consistently elevated past 24 hours. -Resume amlodipine 5 mg daily. Hypokalemia -Persistent hypokalemia since admission, profoundly low today requiring IV/by mouth supplementation. -Continue replacement, recheck later tonight and in a.m. Thrush -IV Diflucan initiated 03/12 Ppx -DVT-SCDs, low plts Sepsis Assessment - Evaluation Sepsis screening result: No Definite Risk Hospital Course Summary Disclaimer: The visit summary below is not to be considered part of the above Progress Note. Hospital Course: 03/09/17 12:12 Pt admitted yesterday evening with sepsis from c. diff colitis and neutropenic fever. Severely neutropenic with ANC <500, on broad spectrum abx with vanc + cefepime for that plus flagyl for c. diff. INR was a bit elevated so DIC work up was done and it was mostly unremarkable but will cont. to monitor. Pt has chronic use of steroids so we stress dosed the steroids. Pt feels much better this am. Will discuss case with oncology for plan of care and for possible descalation of abx. 03/10/17 12:04 Pt clinically doing better with improving diarrhea and overall reports feeling better but his pancytopenia not improving. Hgb dropped to 6.2 so will give 1u pRBC, plts cont. to be in high 20s and may need platelets soon, WBC also staying around 0.3-0.4. Will cont. oral vanc and flagyl for c. diff and cefepime for severe neutropenia. Will cont. to monitor closely. Discussed case with and he will see the pt today. 03/11/17 13:11 Pt clinically stable, pancytopenia continues to worsen although pt looks better from infectious standpoint, filgastrim started yesterday, will give blood products as appropriate, cont. abx tx for c. diff and severe neutropenia, will cont. to monitor closely, case discussed with . 03/12/17 16:45 Clinically stable, white count unchanged but platelet count slightly improved. Filgastrim dose increased to 600 g daily per oncology request. Profound hypokalemia-IV/by mouth supplementation. Thrush evident-IV Diflucan initiated. Blood pressure modestly elevated, amlodipine resumed.
[2017-03-12] MEDS: TAMSULOSIN 0.4 MG CAPSULE PO SCH (21:11)
[2017-03-12 21:40] LABS: Potassium 2.4 MEQ/L (3.6-5)
[2017-03-13] MEDS: POTASSIUM CHLORIDE PREMIX 10 MEQ/100 ML BAG IV SCH ×5 (00:01→21:50)
[2017-03-13 00:35] LABS: Anion Gap 9 MEQ/L (5-15); BUN/Creatinine Ratio 18 RATIO (6-26); CO2 - Carbon Dioxide - NMC 23 MEQ/L (22-30); Calcium - NMC 7.7 MG/DL (8.4-10.2); Chloride - NMC 113 MEQ/L (98-107); Glomerular Filtration Rate 130; Glucose - NMC 102 MG/DL (75-110); NA - Sodium - NMC 145 MEQ/L (134-144); Osmolality,Calculated 278 MOSM/KG (261-280)
[2017-03-13 00:47] LABS: Potassium 2.7 MEQ/L (3.6-5)
[2017-03-13] MEDS: MetroNIDAZOLE PB 500 MG/100 ML BAG IV SCH ×4 (00:57→23:01)
[2017-03-13] MEDS: HYDROCORTISONE SOD SUCC 100mg/2ml INJECTION IVP SCH ×3 (00:58→17:52)
[2017-03-13] MEDS: CEFEPIME 2 GM in NS 100 ML IV SCH ×3 (02:22→18:47)
[2017-03-13] MEDS: POTASSIUM CHLORIDE 20 MEQ/15 ML ORAL LIQUID PO SCH ×4 (02:23→17:52)
[2017-03-13] MEDS: VANCOMYCIN 250mg/5ml ORAL LIQ PO SCH ×4 (02:24→21:17)
[2017-03-13 05:14] LABS: Hematocrit 23.4 % (41-53); Hemoglobin 7.6 GM/DL (13.5-17.5); Mean Corpuscular Hemoglobin 29.2 UUG (26-34); RDW Standard Deviation 57.7 FL (36.9-50.2)
[2017-03-13 05:29] LABS: ALT - NMC 31 U/L (21-72); AST - NMC 8 U/L (17-59); Albumin - NMC 2.1 G/DL (3.5-5.0); Albumin/Globulin Ratio 1.1 RATIO (1.1-2.2); Alkaline Phosphatase - NMC 42 U/L (38-126); Anion Gap 6 MEQ/L (5-15); BUN/Creatinine Ratio 18 RATIO (6-26); CO2 - Carbon Dioxide - NMC 24 MEQ/L (22-30); Calcium - NMC 7.4 MG/DL (8.4-10.2); Chloride - NMC 114 MEQ/L (98-107); Globulin 1.9 G/DL (2.4-3.6); Glomerular Filtration Rate 130; Glucose - NMC 106 MG/DL (75-110); NA - Sodium - NMC 144 MEQ/L (134-144); Osmolality,Calculated 276 MOSM/KG (261-280)
[2017-03-13 05:48] LABS: Potassium 2.6 MEQ/L (3.6-5)
[2017-03-13 05:50] LABS: Platelet Count 28 T/MM3 (130-400); White Blood Count 0.7 T/MM3 (4.5-11.0)
[2017-03-13 06:40] LABS: Corrected White Blood Count 0.7 T/MM3 (4.5-11.0); Nucleated Red Blood Cells 7; Total Cells Counted 100 %
[2017-03-13] MEDS: LEVOTHYROXINE 75 MCG TABLET PO SCH (06:57)
[2017-03-13] MEDS ORDERED: TBO-FILGRASTIM 300mcg/0.5ml INJECTION SQ SCH (09:00)
[2017-03-13] MEDS: DOCUSATE SODIUM 100 MG CAPSULE PO SCH (09:28)
[2017-03-13] MEDS: MULTI-VITAMIN + MINERAL TABLET PO SCH (09:30)
[2017-03-13] MEDS: LACTOBACILLUS (15B cfu) CAPSULE PO SCH (09:38)
[2017-03-13] MEDS: PYRIDOSTIGMINE 60 MG TABLET PO SCH ×3 (09:38→17:51)
[2017-03-13] MEDS: CYANOCOBALAMIN (B-12) 500mcg TABLET PO SCH (09:38)
[2017-03-13] MEDS: CALCIUM CARBONATE 600 MG TABLET PO SCH (09:38)
[2017-03-13] MEDS: AMLODIPINE 5 MG TABLET PO SCH (09:39)
[2017-03-13] MEDS: FERROUS SULFATE 324 MG TABLET PO SCH (09:39)
[2017-03-13] MEDS: MAGNESIUM OXIDE 400 MG TABLET PO SCH (09:39)
--- NOTE | 2017-03-13 11:37 | Progress Note ---
Oncology Subjective WM in nad. more talkative today. mouth better with diflucan. no new complaints. doing better. afebrile. Still on antibiotics. still with diarrhea. Home Medications Amlodipine [Norvasc] 5 mg PO DAILY 03/08/17 [History Confirmed 03/08/17] Calcium Carbonate 600 mg PO DAILY 03/08/17 [History Confirmed 03/08/17] Cholecalciferol [Vitamin D-3] 1 tab PO DAILY 03/08/17 [History Confirmed ] Cyanocobalamin (Vitamin B-12) [Vitamin B-12] 1 tab PO DAILY 03/08/17 [History Confirmed 03/08/17] Docusate Sodium [Colace] 2 cap PO DAILY 03/08/17 [History Confirmed 03/08/17] Ferrous Sulfate 65 mg PO DAILY 03/08/17 [History Confirmed 03/08/17] Hydrocodone/APAP 5/325 [Cranks 5/325] 1 - 2 tab PO Q4HR PRN 03/08/17 [History Confirmed 03/08/17] Levothyroxine Tab [Synthroid] 75 mcg PO DAILY 03/08/17 [History Confirmed ] Magnesium Oxide [Magnesium] 400 mg PO BIDWM 03/08/17 [History Confirmed 03/08/17 ] Kkeqt-Omjotfz-Afrbkzcv Tablet 1 tab PO DAILY 03/08/17 [History Confirmed ] Potassium Chloride ER Tab [K-Dur] 1 tab PO TIDWM 03/08/17 [History Confirmed ] PredniSONE [Deltasone] 40 mg PO WB 03/08/17 [History Confirmed 03/08/17] Pyridostigmine [Mestinon] 30 mg PO TID 03/08/17 [History Confirmed 03/08/17] Tamsulosin [Flomax] 0.4 mg PO HS 03/08/17 [History Confirmed 03/08/17] Active Medications Acetaminophen/Hydrocodone Bitart (Cranks 5/325) 1 - 2 tab PO Q4H PRN PRN Reason: Pain Last Admin: 03/11/17 21:43 Dose: 2 tab Amlodipine Besylate (Norvasc) 5 mg PO DAILY PERRY Last Admin: 03/13/17 09:39 Dose: 5 mg Calcium Carbonate (Caltrate) 600 mg PO DAILY PERRY Last Admin: 03/13/17 09:38 Dose: 600 mg Cholecalciferol (Vit. D-3) 5,000 unit PO DAILY [facility] Last Admin: 03/13/17 09:38 Dose: 5,000 unit Cyanocobalamin (Vit. B-12) 500 mcg PO DAILY [facility] Last Admin: 03/13/17 09:38 Dose: 500 mcg Docusate Sodium (Colace) 200 mg PO DAILY [facility] Last Admin: 03/13/17 09:28 Dose: Not Given Ferrous Sulfate (Feosol) 324 mg PO WB [facility] Last Admin: 03/13/17 09:39 Dose: 324 mg Hydrocortisone Sodium Succinate (Solu-Cortef) 50 mg IVP Q8HR [facility] Last Admin: 03/13/17 09:39 Dose: 50 mg Metronidazole/Sodium Chloride (Flagyl Iv Premix) 500 mg in 100 mls @ 100 mls/ hr IV Q12HR [facility] Last Admin: 03/13/17 10:29 Dose: 100 mls/hr Cefepime HCl 2 gm/ Sodium (Chloride) 100 mls @ 200 mls/hr IV Q8H [facility] Last Infusion: 03/13/17 10:30 Dose: Infused Fluconazole (Diflucan Premix) 100 mg in 50 mls @ 50 mls/hr IV Q24H [facility] Lactobacillus Acidophilus (Culturelle) 2 cap PO BIDWM [facility] Last Admin: 03/13/17 09:38 Dose: 2 cap Levothyroxine Sodium (Synthroid) 75 mcg PO ACB [facility] Last Admin: 03/13/17 06:57 Dose: 75 mcg Magnesium Oxide (Magox) 400 mg PO BIDWM [facility] Last Admin: 03/13/17 09:39 Dose: 400 mg Multivitamins/Minerals (Therapeutic - M) 1 tab PO DAILY [facility] Last Admin: 03/13/17 09:30 Dose: Not Given Ondansetron HCl (Zofran) 4 mg IVP Q6H PRN PRN Reason: Nausea &/or vomiting Last Admin: 03/12/17 20:54 Dose: 4 mg Potassium Chloride (Kcl Oral Liq) 20 meq PO TIDWM [facility] Last Admin: 03/13/17 09:39 Dose: 20 meq Prednisone (Deltasone) 20 mg PO WB [facility] Pyridostigmine [place] (Mestinon) 30 mg PO TIDWM [facility] Last Admin: 03/13/17 09:38 Dose: 30 mg Sodium Chloride (Iv Flush) 10 - 80 ml IV PRN PRN PRN Reason: Flushing Last Admin: 03/12/17 15:06 Dose: 40 ml Sodium Chloride (Normal Saline) 500 ml IV PRN PRN Last Admin: 03/12/17 09:08 Dose: 500 ml Tamsulosin HCl (Flomax) 0.4 mg PO 2100 [facility] Last Admin: 03/12/17 21:11 Dose: 0.4 mg Tbo-Filgrastim (Granix) 480 mcg SQ DAILY [facility] Vancomycin HCl (Vancomycin Oral Liq) 125 mg PO Q6HR [facility] Last Admin: 03/13/17 09:40 Dose: 125 mg Exam Vital signs: Temp Pulse Resp BP Pulse Ox 98.0 F 69 18 141/79 H 96 03/13/17 08:38 03/13/17 08:38 03/13/17 08:38 03/13/17 08:38 03/13/17 08:38 Narrative: wm in nad , better - Constitutional no acute distress, cooperative - Routine HEENT Exam Head: Present: normocephalic, atraumatic ENT: Present: mucous membranes moist (improved oral candidiasis) - Routine Respiratory Exam Present: CTA bilaterally. Absent: stridor, wheezes, crackles - Routine Cardiovascular Exam Present: RRR, no murmur - Routine Abdominal Exam Present: soft, non tender - Routine Extremities Exam Present: edema (1+) - Routine Neurological Exam Present: alert, oriented X3, CN II-XII intact. Absent: sensory deficit, motor deficit Oncology Results - Labs CBC & Chem 7: 03/13/17 04:23 03/13/17 04:23 Labs: Short CBC 03/13/17 Range/Units 04:23 WBC 0.7 L* D (4.5-11.0) T/MM3 Hgb 7.6 L (13.5-17.5) GM/DL Hct 23.4 L (41-53) % Plt Count 28 L* (130-400) T/MM3 [facility] 03/12/17 03/12/17 03/13/17 15:05 21:04 00:17 Sodium 145 H Potassium 2.7 L* 2.4 L* 2.7 L* Chloride 113 H Carbon Dioxide 23 BUN 11.0 Creatinine 0.6 L Glucose 102 Calcium 7.7 L 03/13/17 04:23 Sodium 144 Potassium 2.6 L* Chloride 114 H Carbon Dioxide 24 BUN 11.0 Creatinine 0.6 L Glucose 106 Calcium 7.4 L Liver Function 03/13/17 Range/Units 04:23 Total Bilirubin 0.80 (0.20-1.30) MG/DL AST 8 L (17-59) U/L ALT 31 (21-72) U/L Alkaline Phosphatase 42 (38-126) U/L Albumin 2.1 L (3.5-5.0) G/DL Assessment and Plan (1) Neutropenic fever Status: Acute Assessment and plan: wbc improving. much better at 0.7 afeb, oral mucositis better. Current Visit: Yes (2) C. difficile colitis Status: Acute Assessment and plan: still with diarrhea and low k+, on oral and iv replacements for k+ Current Visit: Yes (3) Pancytopenia Status: Acute Assessment and plan: wbc improving with granix Current Visit: Yes (4) Gastric cancer Status: Chronic Assessment and plan: treatment on hold. Current Visit: Yes (5) Oral pharyngeal candidiasis Status: Acute Assessment and plan: on diflucan Current Visit: Yes (6) Anemia Status: Acute Assessment and plan: monitor cbc. consider checking iron, b12, folic acid and tsh labs Current Visit: Yes (7) Thrombocytopenia Status: Acute Assessment and plan: monitor counts, transfuse 1 pack plts below 15k Current Visit: Yes (8) Protein-calorie malnutrition Status: Acute Assessment and plan: consider tire groover evaluations Microbiology 03/11/17 14:10 Peripheral/Iv Start Blood Culture - Preliminary No Growth After 1 Day 03/11/17 14:10 Cath/Port/Line/Picc Blood Culture - Preliminary No Growth After 1 Day 03/08/17 23:37 Peripheral/Iv Start Blood Culture - Preliminary No Growth After 4 Days 03/08/17 23:36 Peripheral/Iv Start Blood Culture - Preliminary No Growth After 4 Days Laboratory Tests 03/12/17 03/12/17 03/13/17 15:05 21:04 00:17 WBC Hgb Hct Plt Count Band Neutrophils % Sodium 145 H Potassium 2.7 L* 2.4 L* 2.7 L* Chloride 113 H Carbon Dioxide 23 BUN 11.0 Creatinine 0.6 L Glucose 102 Total Bilirubin AST ALT Total Protein Albumin 03/13/17 03/13/17 04:23 04:23 WBC 0.7 L* D Hgb 7.6 L Hct 23.4 L Plt Count 28 L* Band Neutrophils % 4.0 Sodium 144 Potassium 2.6 L* Chloride 114 H Carbon Dioxide 24 BUN 11.0 Creatinine 0.6 L Glucose 106 Total Bilirubin 0.80 AST 8 L ALT 31 Total Protein 4.0 L Albumin 2.1 L Current Visit: Yes Assessment and Plan: WBC is 200, unchanged. plan to add increased neupogen and to add diflucan. Blood c/s neg to date. - Time Spent With Patient Total time spent is greater than 50% in coordination of care (as documented) at patient's floor/unit and/or counseling patient: less than 15 minutes Sepsis Assessment - Evaluation Sepsis screening result: No Definite Risk Medications Home Medications Medication Instructions Recorded Confirmed Type Amlodipine [Norvasc] 5 mg PO DAILY 03/08/17 03/08/17 History Calcium Carbonate 600 mg PO DAILY 03/08/17 03/08/17 History Cholecalciferol [Vitamin D-3] 1 tab PO DAILY 03/08/17 03/08/17 History Cyanocobalamin (Vitamin B-12) 1 tab PO DAILY 03/08/17 03/08/17 History [Vitamin B-12] Docusate Sodium [Colace] 2 cap PO DAILY 03/08/17 03/08/17 History Ferrous Sulfate 65 mg PO DAILY 03/08/17 03/08/17 History Hydrocodone/APAP 5/325 [Cranks 1 - 2 tab PO Q4HR PRN 03/08/17 03/08/17 History 5/325] Levothyroxine Tab [Synthroid] 75 mcg PO DAILY 03/08/17 03/08/17 History Magnesium Oxide [Magnesium] 400 mg PO BIDWM 03/08/17 03/08/17 History Ovvtl-Nuvcwgw-Klvcjjbs Tablet 1 tab PO DAILY 03/08/17 03/08/17 History Potassium Chloride ER Tab [K-Dur] 1 tab PO TIDWM 03/08/17 03/08/17 History PredniSONE [Deltasone] 40 mg PO WB 03/08/17 03/08/17 History Pyridostigmine [Mestinon] 30 mg PO TID 03/08/17 03/08/17 History Tamsulosin [Flomax] 0.4 mg PO HS 03/08/17 03/08/17 History Allergies Allergy/AdvReac Type Severity Reaction Status Date / Time No Known Allergies Allergy Verified 03/08/17 19:25
[2017-03-13] MEDS: FLUCONAZOLE PB 100 MG/50 ML BAG IV SCH (14:44)
--- NOTE | 2017-03-13 14:44 | Progress Note ---
<ThanhZakia Emi - Last Filed: 03/13/17 14:40> Subjective: Mr. Spears is seen today in follow up. He is not feeling well. Tired of taking the potassium replacement "horse pills". It was changed to KCL elixer, but he is still having difficulty with swallowing the medication. Reports poor appetite. Food does not taste well. Reports that he is "tired of fighting." "I think I am ready for my eternal sleep." We had a long discussion today. He is unsure if he is depressed, but overall is not feeling well. He has had a long road of multiple health concerns , and is suffering significant decline in his quality of life. He understands that medical intervention will likely lead to repeated illnesses without improvement in fdc quality given his malignancy. He has started talking to his family about considering stopping care. He lives in [place], and has a daughter in [place]. Reports that he is closer to his son who lives in [facility], and desires to be close to him if care is needed. Plans to further d/w son today. Objective Vital signs: Temp Pulse Resp BP Pulse Ox 98.0 F 69 18 141/79 H 96 03/13/17 08:38 03/13/17 08:38 03/13/17 08:38 03/13/17 08:38 03/13/17 08:38 Weight: 62 kg - Constitutional Present: no acute distress, cooperative Comments: Saddened affect, but is coherent and appropriate. - Routine HEENT Exam Head: Present: normocephalic, atraumatic Eye: Present: EOMI, PERRL ENT: Present: mucous membranes dry - Routine Respiratory Exam Present: CTA bilaterally. Absent: accessory muscle use, dyspnea, decreased breath sounds, rales, wheezes, crackles - Routine Cardiovascular Exam Present: RRR, S1, S2, no murmur - Routine Abdominal Exam Present: soft, non distended. Absent: normoactive bowel sounds (Hyperactive BS) , guarding, firm, rigid - Routine Extremities Exam Present: edema, non tender - Routine Skin Exam Present: intact, dry, warm - Routine Neurological Exam Present: alert, oriented X3, moving all extremities - Routine Psychiatric Exam Present: normal affect, cooperative, good insight, good judgment, depressed. Absent: suicidal ideation, homicidal ideation - Additional findings Additional findings: Generalized edema to arms and to a lesser extent his legs. Appears malnourished/ protein deficient. Results - Labs CBC & Chem 7: 03/13/17 04:23 03/13/17 04:23 - Imaging and Cardiology Chest x-ray Status: image reviewed by me Assessment and Plan (1) Gastric cancer Current visit: Yes Status: Chronic (2) Sepsis Current visit: Yes Status: Acute (3) Neutropenic fever Current visit: Yes Status: Acute (4) C. difficile colitis Current visit: Yes Status: Acute (5) Pancytopenia Current visit: Yes Status: Acute (6) HTN (hypertension) Current visit: Yes Status: Chronic (7) Myasthenia gravis Current visit: Yes Status: Chronic (8) Chronic steroid use Current visit: Yes Status: Chronic (9) Hypothyroid Current visit: Yes Status: Chronic (10) Hypokalemia Current visit: Yes Status: Acute (11) Electrolyte imbalance Current visit: Yes Status: Acute DVT Prophylaxis: SCD's Resuscitation Status: Do Not Resuscitate Assessment and Plan: 03/13/17 Sepsis 2/2 C. diff colitis -Abx-->cefepime D6 + flagyl D6 + Oral vanc D5 Increase Flagyl to TID for C.Diff dosing. Need to stop the probiotics due to immunosuppresion. Neutropenic Fever -Fever resolved with c. diff tx -ANC 280-->192-->104-->96 -will cont. abx per above Pancytopenia -Likely 2/2 chemo tx. Hgb--stable, s/p 1u pRBC, monitor -Plt--28K, improved today, monitor closely, will give plts if <20, will discuss with oncology -WBC-->0.4-->0.3-->0.2-->0.2 today, abx per above, filgrastim started 03/10 per Hem/onc-dose increased to 600 g daily per oncology request -INR elevated, DIC panel not consistent with dic with nml ptt and fibrinogen but D-dimer is elevated -LDH wnls, haptoglobin high, peripheral smear pending -Lymphocyte count is trending up. Monitor. Metastatic Gastric Cancer -Follows with , discussed case with Dr. Clements -Last chemo on 03/02 -Pt. is consider stopping aggressive therapy. Myasthenia Gravis -Stable -On prednisone at home, stress dose steroids with 100mg Q8H hydrocortisone initiated on admission-taper to 50 mg Q8H -Cont. pyridostigmine Hypothyroid -Cont. home levothyroxine -TSH mildly elevated, T4 pending HTN -Amlodipine held on admission, blood pressure consistently elevated past 24 hours. -Amlodipine resumed, BP is running high normal Hypokalemia -Persistent hypokalemia since admission, profoundly low today requiring IV/by mouth supplementation. -Continue replacement, recheck later tonight and in a.m. -Pt is not wanting to take oral potassium terminal gauger in large doses. Will add Aldactone BID given edema, BP should support it. He is dehydrated due to poor PO intake- add IVF with KCL and KPO4. Decrease oral potassium to BID. Repeat Renal panel today at 6pm. He will need close follow up of potassium levels given addition of Aldactone. Mg is normalized, but will repeat tomorrow. Thrush -IV Diflucan initiated 03/12 -Depression/Poor appetite Add low dose Remeron to see if there is any improvement. Ppx -DVT-SCDs, low plts He remains very ill, and is appropriate re: his fdc wishes. Will support, can call in hospice for further explanation of services if desired by pt. Complex case, high risk. > 45 min. spent in counselling and coordination of care , review of record. Sepsis Assessment - Evaluation Sepsis screening result: No Definite Risk Hospital Course Summary Disclaimer: The visit summary below is not to be considered part of the above Progress Note. Hospital Course: 03/09/17 12:12 Pt admitted yesterday evening with sepsis from c. diff colitis and neutropenic fever. Severely neutropenic with ANC <500, on broad spectrum abx with vanc + cefepime for that plus flagyl for c. diff. INR was a bit elevated so DIC work up was done and it was mostly unremarkable but will cont. to monitor. Pt has chronic use of steroids so we stress dosed the steroids. Pt feels much better this am. Will discuss case with oncology for plan of care and for possible descalation of abx. 03/10/17 12:04 Pt clinically doing better with improving diarrhea and overall reports feeling better but his pancytopenia not improving. Hgb dropped to 6.2 so will give 1u pRBC, plts cont. to be in high 20s and may need platelets soon, WBC also staying around 0.3-0.4. Will cont. oral vanc and flagyl for c. diff and cefepime for severe neutropenia. Will cont. to monitor closely. Discussed case with and he will see the pt today. 03/11/17 13:11 Pt clinically stable, pancytopenia continues to worsen although pt looks better from infectious standpoint, filgastrim started yesterday, will give blood products as appropriate, cont. abx tx for c. diff and severe neutropenia, will cont. to monitor closely, case discussed with . 03/12/17 16:45 Clinically stable, white count unchanged but platelet count slightly improved. Filgastrim dose increased to 600 g daily per oncology request. Profound hypokalemia-IV/by mouth supplementation. Thrush evident-IV Diflucan initiated. Blood pressure modestly elevated, amlodipine resumed. 03/13/17 14:59 Sepsis 2/2 C. diff colitis -Abx-->cefepime D6 + flagyl D6 + Oral vanc D5 Increase Flagyl to TID for C.Diff dosing. Need to stop the probiotics due to immunosuppresion. Neutropenic Fever -Fever resolved with c. diff tx -ANC 280-->192-->104-->96 -will cont. abx per above Pancytopenia -Likely 2/2 chemo tx. Hgb--stable, s/p 1u pRBC, monitor -Plt--28K, improved today, monitor closely, will give plts if <20, will discuss with oncology -WBC-->0.4-->0.3-->0.2-->0.2 today, abx per above, filgrastim started 03/10 per Hem/onc-dose increased to 600 g daily per oncology request -INR elevated, DIC panel not consistent with dic with nml ptt and fibrinogen but D-dimer is elevated -LDH wnls, haptoglobin high, peripheral smear pending -Lymphocyte count is trending up. Monitor. Metastatic Gastric Cancer -Follows with , discussed case with Dr. Clements -Last chemo on 03/02 -Pt. is consider stopping aggressive therapy. Myasthenia Gravis -Stable -On prednisone at home, stress dose steroids with 100mg Q8H hydrocortisone initiated on admission-taper to 50 mg Q8H -Cont. pyridostigmine Hypothyroid -Cont. home levothyroxine -TSH mildly elevated, T4 pending HTN -Amlodipine held on admission, blood pressure consistently elevated past 24 hours. -Amlodipine resumed, BP is running high normal Hypokalemia -Persistent hypokalemia since admission, profoundly low today requiring IV/by mouth supplementation. -Continue replacement, recheck later tonight and in a.m. -Pt is not wanting to take oral potassium fdc in large doses. Will add Aldactone BID given edema, BP should support it. He is dehydrated due to poor PO intake- add IVF with KCL and KPO4. Decrease oral potassium to BID. Repeat Renal panel today at 6pm. He will need close follow up of potassium levels given addition of Aldactone. Mg is normalized, but will repeat tomorrow. Thrush -IV Diflucan initiated 03/12 -Depression/Poor appetite Add low dose Remeron to see if there is any improvement. Ppx -DVT-SCDs, low plts He remains very ill, and is appropriate re: his terminal gauger wishes. Will support, can call in hospice for further explanation of services if desired by pt. Complex case, high risk. > 45 min. spent in counselling and coordination of care , review of record. <Sindi Monroe - Last Filed: 03/13/17 17:30> Objective Vital signs: Temp Pulse Resp BP Pulse Ox 97.7 F 82 20 123/70 97 03/13/17 15:34 03/13/17 15:34 03/13/17 15:34 03/13/17 15:34 03/13/17 15:34 Results - Labs CBC & Chem 7: 03/13/17 04:23 03/13/17 04:23 Assessment and Plan (1) Sepsis Current visit: Yes Status: Acute (2) Neutropenic fever Current visit: Yes Status: Acute (3) C. difficile colitis Current visit: Yes Status: Acute (4) Pancytopenia Current visit: Yes Status: Acute (5) HTN (hypertension) Current visit: Yes Status: Chronic (6) Myasthenia gravis Current visit: Yes Status: Chronic (7) Chronic steroid use Current visit: Yes Status: Chronic (8) Hypothyroid Current visit: Yes Status: Chronic (9) Gastric cancer Current visit: Yes Status: Chronic (10) Hypokalemia Current visit: Yes Status: Acute (11) Electrolyte imbalance Current visit: Yes Status: Acute Assessment and Plan: I have independently evaluated and examined this patient. I reviewed the chart, the patient's history, and the [employer]'s documented findings as above. We discussed and formulated the assessment and plan as above with additions as below: Mr. Spears reports that he is considering end-of-life care as described above. He acknowledges depressive symptoms and frustration with inability to return to work due to illness. He's had some heartburn which he attributes to potassium pills but generally has no nausea or vomiting and has not had arthralgias or myalgias with Neupogen. Mild generalized edema, alert, cooperative. Respirations nonlabored. Oropharynx improved-minimal plaque on tongue today. Abdomen benign, nontender. ANC 266 with total white count 0.7 today-lymphocyte dominance noted, somewhat atypical for recovering marrow. Patient encouraged to discuss his terminal gauger wishes with family members and with Dr. Mcclendon. Discussed with Dr. Clements and-given modest bump in white count today filgrastim dose decreased to 480 g daily. Continue IV hydrocortisone tonight, resume home dose of prednisone tomorrow. Hospital Course Summary Disclaimer: The visit summary below is not to be considered part of the above Progress Note.
[2017-03-13] MEDS: POTASSIUM CHLORIDE INJ 20 MEQ, POTASSIUM PHOSPHATE (mEq) 20 MEQ in D5-1/2NS 1,000 ML IV SCH (16:04)
[2017-03-13] MEDS: SALINE FLUSH 10ml SYRINGE IV PRN ×2 (17:52→20:43)
[2017-03-13] MEDS: SPIRONOLACTONE 25 MG TABLET PO SCH (17:52)
[2017-03-13 18:13] LABS: Albumin - NMC 2.1 G/DL (3.5-5.0); Anion Gap 7 MEQ/L (5-15); BUN/Creatinine Ratio 18 RATIO (6-26); CO2 - Carbon Dioxide - NMC 24 MEQ/L (22-30); Calcium - NMC 7.7 MG/DL (8.4-10.2); Chloride - NMC 113 MEQ/L (98-107); Glomerular Filtration Rate 130; Glucose - NMC 117 MG/DL (75-110); NA - Sodium - NMC 144 MEQ/L (134-144); Osmolality,Calculated 277 MOSM/KG (261-280); Phosphorus - NMC 2.2 MG/DL (2.5-4.5)
[2017-03-13 18:18] LABS: Potassium 2.5 MEQ/L (3.6-5)
[2017-03-13] MEDS: TAMSULOSIN 0.4 MG CAPSULE PO SCH (21:17)
[2017-03-13] MEDS: MIRTAZAPINE 15 MG TABLET PO SCH (21:18)
[2017-03-13] MEDS: HYDROCODONE/APAP 5mg/325mg TABLET PO PRN (22:32)
[2017-03-14] MEDS: CEFEPIME 2 GM in NS 100 ML IV SCH ×2 (00:19→11:02)
[2017-03-14] MEDS: NS FLUSH BAG 500ml IV PRN (00:19)
[2017-03-14] MEDS: POTASSIUM CHLORIDE PREMIX 10 MEQ/100 ML BAG IV SCH ×8 (01:09→22:33)
[2017-03-14] MEDS: HYDROCORTISONE SOD SUCC 100mg/2ml INJECTION IVP SCH (02:10)
[2017-03-14] MEDS: VANCOMYCIN 250mg/5ml ORAL LIQ PO SCH ×4 (04:31→22:16)
[2017-03-14] MEDS: LEVOTHYROXINE 75 MCG TABLET PO SCH (05:36)
[2017-03-14] MEDS: SALINE FLUSH 10ml SYRINGE IV PRN (05:41)
[2017-03-14] MEDS: POTASSIUM CHLORIDE INJ 20 MEQ, POTASSIUM PHOSPHATE (mEq) 20 MEQ in D5-1/2NS 1,000 ML IV SCH (05:42)
[2017-03-14 06:14] LABS: Hematocrit 22.1 % (41-53); Hemoglobin 7.2 GM/DL (13.5-17.5); Mean Corpuscular Hemoglobin 29.8 UUG (26-34); Mean Corpuscular Volume 91.3 UM3 (80-100); Platelet Count 32 T/MM3 (130-400); RDW Standard Deviation 57.5 FL (36.9-50.2); Red Blood Count 2.42 M/MM3 (4.50-5.90); White Blood Count 3.7 T/MM3 (4.5-11.0)
[2017-03-14 06:20] LABS: Albumin - NMC 1.8 G/DL (3.5-5.0); Anion Gap 4 MEQ/L (5-15); BUN/Creatinine Ratio 18 RATIO (6-26); CO2 - Carbon Dioxide - NMC 24 MEQ/L (22-30); Calcium - NMC 7.5 MG/DL (8.4-10.2); Chloride - NMC 113 MEQ/L (98-107); Glomerular Filtration Rate 130; Glucose - NMC 136 MG/DL (75-110); MAG - Magnesium - NMC 1.7 MG/DL (1.6-2.3); NA - Sodium - NMC 141 MEQ/L (134-144); Osmolality,Calculated 272 MOSM/KG (261-280); Potassium 3.9 MEQ/L (3.6-5)
[2017-03-14 06:56] LABS: Total Cells Counted 100 %
[2017-03-14 06:57] LABS: Nucleated Red Blood Cells 4
[2017-03-14] MEDS: MetroNIDAZOLE PB 500 MG/100 ML BAG IV SCH ×2 (08:41→18:45)
[2017-03-14] MEDS: MAGNESIUM OXIDE 400 MG TABLET PO SCH (08:54)
[2017-03-14] MEDS: FERROUS SULFATE 324 MG TABLET PO SCH (08:54)
[2017-03-14] MEDS: POTASSIUM CHLORIDE 20 MEQ/15 ML ORAL LIQUID PO SCH (08:54)
[2017-03-14] MEDS: PredniSONE 20 MG TABLET PO SCH (08:54)
[2017-03-14] MEDS: PYRIDOSTIGMINE 60 MG TABLET PO SCH ×3 (08:54→18:46)
[2017-03-14] MEDS: AMLODIPINE 5 MG TABLET PO SCH (08:55)
[2017-03-14] MEDS: CALCIUM CARBONATE 600 MG TABLET PO SCH (08:55)
[2017-03-14] MEDS: MULTI-VITAMIN + MINERAL TABLET PO SCH (08:55)
[2017-03-14] MEDS: CYANOCOBALAMIN (B-12) 500mcg TABLET PO SCH (08:55)
[2017-03-14] MEDS: SPIRONOLACTONE 25 MG TABLET PO SCH ×2 (08:55→18:46)
[2017-03-14] MEDS ORDERED: TBO-FILGRASTIM 480mcg/0.8ml INJECTION SQ SCH (09:00)
--- NOTE | 2017-03-14 09:57 | Progress Note ---
Oncology Subjective Sitting in chair eating bkfast at time of intake; has eaten half of his scrambled eggs. Alert and oriented 2. Denies pain currently. Complains of lightheadedness at times with position change. Denies headaches or vision changes. Mouth sores/swallowing improved States "yesterday was a bad day, but today is better." No bowel movement yet this morning, states had some bright red blood in stool yesterday. Patient requests Dr. Mcclendon speak with son, "we have some questions; my son wrote down a question on the note pad. " Written statement on paper " When go to hospice. Release from [facility]. " Asked patient does he want to continue treatment. Replies "if you had asked me yesterday, I would've said no. Today, I' m not sure. I'm going to think about it." General: No fever, no night sweats. Generalized weakness Eyes: No redness, no pain, no diplopia ENT: Positive mild dysphasia Cardiac: No chest pain no palpitations. Edema bilateral upper and lower extremities. Pulmonary: No cough, no shortness of breath, no wheezing Abdomen: No pain, no nausea vomiting, no diarrhea or constipation. Positive bright red blood in stool yesterday. None today : No urgency, frequency, dysuria, or hematuria Musculoskeletal: No arthritis, no myalgias Neurological: No headaches, no focal weakness Skin: No rash, no sores Psychiatric: No anxiety, no depression <Dian Smith - 03/14/17 15:59> Exam Vital signs: Temp Pulse Resp BP Pulse Ox 97.2 F 74 14 132/82 96 03/14/17 14:00 03/14/17 14:00 03/14/17 14:00 03/14/17 14:00 03/14/17 14:00 <Marin Mcclendon - 03/14/17 16:19> Temp Pulse Resp BP Pulse Ox 97.3 F 70 16 153/91 H 97 03/14/17 08:00 03/14/17 08:00 03/14/17 08:00 03/14/17 08:00 03/14/17 08:00 <Dian Smith - 03/14/17 09:57> - Constitutional no acute distress, well nourished, well developed <Dian Smith - 03/14/17 15:59> - Routine HEENT Exam Head: Present: normocephalic <Dian Smith - 03/14/17 15:59> Eye: Absent: exophthalmos <Dian Smith - 03/14/17 15:59> ENT: Present: mucous membranes dry <Dian Smith - 03/14/17 15:59> Comments: Ulcerated areas on Lips, no lesions noted on tongue or gums. Tongue slightly dry. <Dian Smith - 03/14/17 15:59> - Routine Neck Exam Present: supple. Absent: lymphadenopathy, tenderness <Dian Smith - 15:59> - Routine Respiratory Exam Absent: dyspnea, rhonchi, wheezes <Dian Smith - 03/14/17 15:59> - Routine Cardiovascular Exam Present: RRR. Absent: no murmur <Dian Smith 03/14/17 15:59> - Routine Abdominal Exam Present: soft, normoactive bowel sounds. Absent: tenderness <Dian Smith - 03/14/17 15:59> - Routine Extremities Exam Present: edema <Dian Smith - 03/14/17 15:59> Comments: Bilateral upper extremity edema, 1+ edema bilateral lower extremities <Dian Smith - 03/14/17 15:59> - Routine Back/Spine/Pelvis Exam Back/Spine: Absent: vertebral tenderness <Dian Smith 03/14/17 15:59> - Routine Skin Exam Present: intact, pallor. Absent: petechiae, rash <Dian Smith - 03/14/17 15:59> - Routine Neurological Exam Present: alert, moving all extremities <Dian Smith - 03/14/17 15:59> Gait not observed. <Dian Smith - 03/14/17 15:59> Oncology Results - Labs CBC & Chem 7: 03/14/17 05:39 03/14/17 05:39 <Marin Mcclendon D - 03/14/17 16:19> Labs: Short CBC 03/14/17 Range/Units 05:39 WBC 3.7 L D (4.5-11.0) T/MM3 Hgb 7.2 L (13.5-17.5) GM/DL Hct 22.1 L (41-53) % Plt Count 32 L (130-400) T/MM3 [facility] 03/13/17 03/14/17 17:58 05:39 Sodium 144 141 Potassium 2.5 L* 3.9 D Chloride 113 H 113 H Carbon Dioxide 24 24 BUN 11.0 11.0 Creatinine 0.6 L 0.6 L Glucose 117 H 136 H Calcium 7.7 L 7.5 L Liver Function 03/13/17 03/14/17 Range/Units 17:58 05:39 Albumin 2.1 L 1.8 L (3.5-5.0) G/DL <Marin Mcclendon D - 03/14/17 16:19> Short CBC 03/14/17 Range/Units 05:39 WBC 3.7 L D (4.5-11.0) T/MM3 Hgb 7.2 L (13.5-17.5) GM/DL Hct 22.1 L (41-53) % Plt Count 32 L (130-400) T/MM3 [facility] 03/13/17 03/14/17 17:58 05:39 Sodium 144 141 Potassium 2.5 L* 3.9 D Chloride 113 H 113 H Carbon Dioxide 24 24 BUN 11.0 11.0 Creatinine 0.6 L 0.6 L Glucose 117 H 136 H Calcium 7.7 L 7.5 L Liver Function 03/13/17 03/14/17 Range/Units 17:58 05:39 Albumin 2.1 L 1.8 L (3.5-5.0) G/DL <Dian Smith L - 03/14/17 09:57> Assessment and Plan (1) Neutropenic fever Status: Acute Current Visit: Yes (2) C. difficile colitis Status: Acute Current Visit: Yes (3) Pancytopenia Status: Acute Current Visit: Yes (4) Gastric cancer Status: Chronic Current Visit: Yes (5) Oral pharyngeal candidiasis Status: Acute Current Visit: Yes (6) Anemia Status: Acute Current Visit: Yes (7) Thrombocytopenia Status: Acute Current Visit: Yes (8) Protein-calorie malnutrition Status: Acute Current Visit: Yes <Dian Smith - 03/14/17 16:00> (1) Neutropenic fever Status: Acute Current Visit: Yes (2) C. difficile colitis Status: Acute Current Visit: Yes (3) Pancytopenia Status: Acute Current Visit: Yes (4) Gastric cancer Status: Chronic Current Visit: Yes (5) Oral pharyngeal candidiasis Status: Acute Current Visit: Yes (6) Anemia Status: Acute Current Visit: Yes (7) Thrombocytopenia Status: Acute Current Visit: Yes (8) Protein-calorie malnutrition Status: Acute Current Visit: Yes <Marin Mcclendon - 03/14/17 16:19> Assessment and Plan: Patient examined, chart reviewed, agree with documentation by Florencia Smith. I participated in the development of the plan of care with this patient. Discussed with Dr. Monroe he has had palliation of his symptoms of abdominal distention, abdominal pain since starting the Camptosar. He is also developed increasing weakness and has really been beat up by the Camptosar and the C. difficile. I feel it would be appropriate for the patient to consider hospice care which can be accomplished either at his son's home in [place] or at the hospice residential unit and [place] through [facility]. In addition consideration of palliative care through [facility] up without having him on the hospice Medicare benefit might be beneficial for strengthening and allow him better quality of time. Either approach would be appropriate depending upon his and his son's request. Lip lesion appears to be herpetic. Discussed using acyclovir with Dr. Monroe. <Marin Mcclendon - 03/14/17 16:19> 1. C. difficile colitis with inflammation of the colon. 2. Gastric carcinoma with progressive disease with ascites and omental implants on CT scan from mid January 2017 initial therapy was with cisplatin 5-FU now with progressive disease on Camptosar. Camptosar administered on 03/02/17 at 2 level dose reduction because of prior neutropenia with Camptosar on 02/11/17. Patient is homozygous for UTUA1G. initial dose was reduced from 150-1 25/m. Results of this came back after first dose. He did have neutropenia and thrombocytopenia with a first dose. Second dose was given at 100 mg/m. This also can be contributing to his diarrhea. 3. Severe neutropenia with colitis. Cultures negative so far. On broad-spectrum antibiotics. G-CSF daily. WBCs improved today to 3.7, ANC 1.8 4. Thrombocytopenia. This is multifactorial secondary to his disease. 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 Platelets 32K today, slowly improving. 5. Anemia secondary to probable GI blood loss and chemotherapy. Status post transfusion 1 unit packed RBC last week. Hemoglobin 7.2 today. 6. Myasthenia gravis currently on Mestinon and prednisone. 7. History of prostatic carcinoma status post radiation therapy with normal PSA in December 2016 8. Ascites and omental seeding from his gastric carcinoma with increased pain secondary to above. He presented in January 2016 with positive omental biopsy, gastric outlet obstruction requiring feeding tube and began chemotherapy February 2016 with cis-[place]. Currently taking food and fluids orally. 03/14/2017 Continue supportive care with vancomycin, GCSF, antibiotics, Diflucan for mucositis. Consider albumin and blood transfusion. Discussed with Dr. Ford; Dr. Mcclendon will discuss with patient/son treatment options, potential hospice versus continued palliative care. <Dian Smith - 03/14/17 16:01> - Time Spent With Patient Total time spent is greater than 50% in coordination of care (as documented) at patient's floor/unit and/or counseling patient: <Marin Mcclendon - 03/14/17 16:19> Total time spent is greater than 50% in coordination of care (as documented) at patient's floor/unit and/or counseling patient: <Dian Smith - 03/14/17 09:57> 25 - 35 minutes <Dian Smith - 03/14/17 16:01> Sepsis Assessment - Evaluation Sepsis screening result: No Definite Risk <Dian Smith 03/14/17 09:57>
[2017-03-14] MEDS ORDERED: FUROSEMIDE 20 MG/2 ML INJECTION IVP ONE (10:41)
[2017-03-14] MEDS ORDERED: ACETAMINOPHEN 325 MG TABLET PO ONE (10:41)
--- NOTE | 2017-03-14 17:17 | Progress Note ---
Subjective: Mr. Spears continues to describe fatigue and weakness. He denies having any stools today and reports no nausea or dyspnea. Nursing reports no fever. Patient reports he's sleeping well but appetite is poor. Objective Vital signs: Temp Pulse Resp BP Pulse Ox 97.4 F 75 16 135/80 98 03/14/17 16:25 03/14/17 16:25 03/14/17 16:25 03/14/17 16:25 03/14/17 16:25 EXAM General-NAD, alert HEENT-conjugate gaze, conjunctiva clear, lips swollen with some exudate present Lungs-respirations nonlabored, decreased airflow, breath sounds clear Cardiac-regular rhythm, S1-S2 Abd-soft, mildly distended but nontender, bowel sounds present Ext-+1-2 edema 4 extremities Neuro-moving upper extremities symmetrically Psych-calm - Weight: 62.9 kg Results - Labs CBC & Chem 7: 03/14/17 05:39 03/14/17 05:39 Labs: Differential-neutrophils 48, bands 24, lymphocytes 16, monocytes 5, eosinophils 4 Magnesium 1.7, albumin 1.8 4 blood cultures drawn-all negative at this time (3 and 5 days) Assessment and Plan (1) Sepsis Current visit: Yes Status: Acute (2) Neutropenic fever Current visit: Yes Status: Acute (3) C. difficile colitis Current visit: Yes Status: Acute (4) Pancytopenia Current visit: Yes Status: Acute (5) HTN (hypertension) Current visit: Yes Status: Chronic (6) Myasthenia gravis Current visit: Yes Status: Chronic (7) Chronic steroid use Current visit: Yes Status: Chronic (8) Hypothyroid Current visit: Yes Status: Chronic (9) Gastric cancer Current visit: Yes Status: Chronic (10) Hypokalemia Current visit: Yes Status: Acute (11) Electrolyte imbalance Current visit: Yes Status: Acute (12) Thrush Current visit: Yes Status: Acute Assessment and Plan: Neutropenia has resolved-ANCA 2660 today. Subsequently cefepime and filgrastim have been discontinued. Above discussed with Dr. Mcclendon. Continue treatment for C. difficile colitis and thrush; exam suggestive of herpetic infection of the lips-valacyclovir initiated. Dr. Mcclendon has had the opportunity discussed patient's care plans-he wishes to focus on palliative care and possibly hospice but will need to discuss this further with patient's son who was unavailable this afternoon. Patient indicated desire to discharge to his son's home in [place]. PT to evaluate. One unit of packed red blood cells being transfused today-reassess hemoglobin posttransfusion. Potassium significantly improved, oral replacement discontinued-continue spironolactone and reassess potassium with posttransfusion hemoglobin. Patient has resumed chronic therapy for myasthenia gravis. Discussed with case management. Sepsis Assessment - Evaluation Sepsis screening result: No Definite Risk Hospital Course Summary Disclaimer: The visit summary below is not to be considered part of the above Progress Note. Hospital Course: 03/09/17 12:12 Pt admitted yesterday evening with sepsis from c. diff colitis and neutropenic fever. Severely neutropenic with ANC <500, on broad spectrum abx with vanc + cefepime for that plus flagyl for c. diff. INR was a bit elevated so DIC work up was done and it was mostly unremarkable but will cont. to monitor. Pt has chronic use of steroids so we stress dosed the steroids. Pt feels much better this am. Will discuss case with oncology for plan of care and for possible descalation of abx. 03/10/17 12:04 Pt clinically doing better with improving diarrhea and overall reports feeling better but his pancytopenia not improving. Hgb dropped to 6.2 so will give 1u pRBC, plts cont. to be in high 20s and may need platelets soon, WBC also staying around 0.3-0.4. Will cont. oral vanc and flagyl for c. diff and cefepime for severe neutropenia. Will cont. to monitor closely. Discussed case with and he will see the pt today. 03/11/17 13:11 Pt clinically stable, pancytopenia continues to worsen although pt looks better from infectious standpoint, filgastrim started yesterday, will give blood products as appropriate, cont. abx tx for c. diff and severe neutropenia, will cont. to monitor closely, case discussed with . 03/12/17 16:45 Clinically stable, white count unchanged but platelet count slightly improved. Filgastrim dose increased to 600 g daily per oncology request. Profound hypokalemia-IV/by mouth supplementation. Thrush evident-IV Diflucan initiated. Blood pressure modestly elevated, amlodipine resumed. 03/13/17 14:59 Sepsis 2/2 C. diff colitis -Abx-->cefepime D6 + flagyl D6 + Oral vanc D5 Increase Flagyl to TID for C.Diff dosing. Need to stop the probiotics due to immunosuppresion. Neutropenic Fever -Fever resolved with c. diff tx -ANC 280-->192-->104-->96 -will cont. abx per above Pancytopenia -Likely 2/2 chemo tx. Hgb--stable, s/p 1u pRBC, monitor -Plt--28K, improved today, monitor closely, will give plts if <20, will discuss with oncology -WBC-->0.4-->0.3-->0.2-->0.2 today, abx per above, filgrastim started 03/10 per Hem/onc-dose increased to 600 g daily per oncology request -INR elevated, DIC panel not consistent with dic with nml ptt and fibrinogen but D-dimer is elevated -LDH wnls, haptoglobin high, peripheral smear pending -Lymphocyte count is trending up. Monitor. Metastatic Gastric Cancer -Follows with , discussed case with Dr. Clements -Last chemo on 03/02 -Pt. is consider stopping aggressive therapy. Myasthenia Gravis -Stable -On prednisone at home, stress dose steroids with 100mg Q8H hydrocortisone initiated on admission-taper to 50 mg Q8H -Cont. pyridostigmine Hypothyroid -Cont. home levothyroxine -TSH mildly elevated, T4 pending HTN -Amlodipine held on admission, blood pressure consistently elevated past 24 hours. -Amlodipine resumed, BP is running high normal Hypokalemia -Persistent hypokalemia since admission, profoundly low today requiring IV/by mouth supplementation. -Continue replacement, recheck later tonight and in a.m. -Pt is not wanting to take oral potassium usp in large doses. Will add Aldactone BID given edema, BP should support it. He is dehydrated due to poor PO intake- add IVF with KCL and KPO4. Decrease oral potassium to BID. Repeat Renal panel today at 6pm. He will need close follow up of potassium levels given addition of Aldactone. Mg is normalized, but will repeat tomorrow. Thrush -IV Diflucan initiated 03/12 -Depression/Poor appetite Add low dose Remeron to see if there is any improvement. Ppx -DVT-SCDs, low plts 03/14/17 17:25 Neutropenia has resolved-ANCA 2660 today. Subsequently cefepime and filgrastim have been discontinued. Above discussed with Dr. Mcclendon. Continue treatment for C. difficile colitis and thrush; exam suggestive of herpetic infection of the lips-valacyclovir initiated. Dr. Mcclendon has had the opportunity discussed patient's care plans-he wishes to focus on palliative care and possibly hospice but will need to discuss this further with patient's son who was unavailable this afternoon. Patient indicated desire to discharge to his son's home in [place]. PT to evaluate. One unit of packed red blood cells being transfused today-reassess hemoglobin posttransfusion. Potassium significantly improved, oral replacement discontinued-continue spironolactone and reassess potassium with posttransfusion hemoglobin.
[2017-03-14] MEDS: FLUCONAZOLE PB 100 MG/50 ML BAG IV SCH (18:44)
[2017-03-14 18:51] LABS: Hemoglobin 10.3 GM/DL (13.5-17.5)
[2017-03-14 19:22] LABS: Potassium 2.4 MEQ/L (3.6-5)
[2017-03-14] MEDS: MIRTAZAPINE 15 MG TABLET PO SCH (23:08)
[2017-03-14] MEDS: TAMSULOSIN 0.4 MG CAPSULE PO SCH (23:09)
[2017-03-14] MEDS: HYDROCODONE/APAP 5mg/325mg TABLET PO PRN (23:09)
[2017-03-14] MEDS: VALACYCLOVIR 500 MG TABLET PO SCH (23:16)
[2017-03-15] MEDS: MetroNIDAZOLE PB 500 MG/100 ML BAG IV SCH ×3 (00:57→15:14)
[2017-03-15 04:43] LABS: Hematocrit 27.3 % (41-53); Hemoglobin 8.9 GM/DL (13.5-17.5); Mean Corpuscular Hemoglobin 28.7 UUG (26-34); Mean Corpuscular Volume 88.1 UM3 (80-100); Platelet Count 39 T/MM3 (130-400); RDW Standard Deviation 55.1 FL (36.9-50.2); White Blood Count 10.6 T/MM3 (4.5-11.0)
[2017-03-15] MEDS: VANCOMYCIN 250mg/5ml ORAL LIQ PO SCH ×4 (05:17→21:19)
[2017-03-15 05:22] LABS: Anion Gap 4 MEQ/L (5-15); BUN/Creatinine Ratio 17 RATIO (6-26); CO2 - Carbon Dioxide - NMC 28 MEQ/L (22-30); Calcium - NMC 7.6 MG/DL (8.4-10.2); Chloride - NMC 107 MEQ/L (98-107); Glomerular Filtration Rate 130; Glucose - NMC 74 MG/DL (75-110); NA - Sodium - NMC 139 MEQ/L (134-144); Osmolality,Calculated 266 MOSM/KG (261-280)
[2017-03-15 05:39] LABS: Potassium 2.4 MEQ/L (3.6-5)
[2017-03-15] MEDS: LEVOTHYROXINE 75 MCG TABLET PO SCH (06:18)
[2017-03-15 06:40] LABS: Total Cells Counted 100 %
[2017-03-15 06:41] LABS: Corrected White Blood Count 9.6 T/MM3 (4.5-11.0); Nucleated Red Blood Cells 10
[2017-03-15] MEDS: SPIRONOLACTONE 25 MG TABLET PO SCH ×2 (09:22→17:32)
[2017-03-15] MEDS: PredniSONE 20 MG TABLET PO SCH (09:22)
[2017-03-15] MEDS: PYRIDOSTIGMINE 60 MG TABLET PO SCH ×3 (09:22→17:32)
[2017-03-15] MEDS: FERROUS SULFATE 324 MG TABLET PO SCH (09:22)
[2017-03-15] MEDS: CYANOCOBALAMIN (B-12) 500mcg TABLET PO SCH (09:23)
[2017-03-15] MEDS: AMLODIPINE 5 MG TABLET PO SCH (09:23)
[2017-03-15] MEDS: CALCIUM CARBONATE 600 MG TABLET PO SCH (09:23)
[2017-03-15] MEDS: VALACYCLOVIR 500 MG TABLET PO SCH ×2 (09:23→22:09)
[2017-03-15] MEDS: MULTI-VITAMIN + MINERAL TABLET PO SCH (09:23)
[2017-03-15] MEDS: MAGNESIUM OXIDE 400 MG TABLET PO SCH (09:23)
[2017-03-15] MEDS: POTASSIUM CHLORIDE PREMIX 10 MEQ/100 ML BAG IV SCH ×2 (11:25→12:09)
--- NOTE | 2017-03-15 13:06 | Progress Note ---
Oncology Subjective Reclining in hospital bed, attempting to eat mashed potatoes, but difficult secondary to sores on lips. He denies other pain currently. Denies cough or shortness of air. General: No fever, no chills, no night sweats." I'm cold a lot." States voiding okay. No BM today. Had loose bloody stool last evening per patient. Eyes: No redness, no pain, no diplopia ENT: + mouth sores, no trouble swallowing Cardiac: No chest pain no palpitations Pulmonary: No cough, no shortness of breath, no wheezing Abdomen: No pain, no nausea vomiting, no diarrhea or constipation. Hematochezia persists. : No urgency, frequency, dysuria, or hematuria Musculoskeletal: No arthritis, no myalgias Neurological: No headaches, no focal weakness Skin: Positive multiple sores on lips Psychiatric: No anxiety, no depression Exam Vital signs: Temperature 96.2 F L 03/15/17 07:37 Pulse Rate 71 03/15/17 07:37 Respiratory Rate 18 03/15/17 07:37 Blood Pressure 173/90 H 03/15/17 07:37 Pulse Oximetry 93 03/15/17 07:37 Oxygen Delivery Method Room Air - Constitutional no acute distress, well nourished - Routine HEENT Exam Head: Present: normocephalic Eye: Present: EOMI ENT: Present: mucous membranes moist Comments: Multiple shallow ulcerations on external lower lip - Routine Neck Exam Present: supple. Absent: lymphadenopathy, tenderness - Routine Respiratory Exam Present: decreased breath sounds. Absent: rhonchi, wheezes - Routine Cardiovascular Exam Present: RRR. Absent: murmur - Routine Abdominal Exam Present: soft, non distended - Routine Extremities Exam Present: edema, full ROM Comments: hunter. upper and lower extremities - Routine Back/Spine/Pelvis Exam Back/Spine: Absent: vertebral tenderness - Routine Skin Exam Present: pallor. Absent: petechiae - Routine Neurological Exam Present: alert, oriented X3, moving all extremities - Routine Psychiatric Exam Present: normal affect, cooperative Oncology Results - Labs CBC & Chem 7: 03/15/17 04:12 03/15/17 04:12 Labs: Short CBC 03/14/17 03/15/17 Range/Units 18:39 04:12 WBC 10.6 D (4.5-11.0) T/MM3 Hgb 10.3 L D 8.9 L D (13.5-17.5) GM/DL Hct 27.3 L D (41-53) % Plt Count 39 L (130-400) T/MM3 BMP 03/14/17 03/15/17 18:39 04:12 Sodium 139 Potassium 2.4 L* D 2.4 L* Chloride 107 Carbon Dioxide 28 BUN 10.0 Creatinine 0.6 L Glucose 74 L Calcium 7.6 L Assessment and Plan (1) Neutropenic fever Status: Acute Current Visit: Yes (2) C. difficile colitis Status: Acute Current Visit: Yes (3) Pancytopenia Status: Acute Current Visit: Yes (4) Gastric cancer Status: Chronic Current Visit: Yes (5) Oral pharyngeal candidiasis Status: Acute Current Visit: Yes (6) Anemia Status: Acute Current Visit: Yes (7) Thrombocytopenia Status: Acute Current Visit: Yes (8) Protein-calorie malnutrition Status: Acute Current Visit: Yes Assessment and Plan: 1. C. difficile colitis with inflammation of the colon. 2. Gastric carcinoma with progressive disease with ascites and omental implants on CT scan from mid January 2017 initial therapy was with cisplatin 5-FU now with progressive disease on Camptosar. Camptosar administered on 03/02/17 at 2 level dose reduction because of prior neutropenia with Camptosar on 02/11/17. Patient is homozygous for UTUA1G. initial dose was reduced from 150-1 25/m. Results of this came back after first dose. He did have neutropenia and thrombocytopenia with a first dose. Second dose was given at 100 mg/m. 3. Severe neutropenia with colitis. Cultures negative so far. On broad-spectrum antibiotics. G-CSF was given for several days. WBCs recovering; Granix has been stopped. 4. Thrombocytopenia. This is multifactorial secondary to his disease. 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 Platelets 32K today, slowly improving. 5. Anemia secondary to probable GI blood loss and chemotherapy. Status post transfusion 1 unit packed RBC last week and 1unit packed RBC's yesterday with hemoglobin 7.2. Hemoglobin 8.9 today. 6. Myasthenia gravis currently on Mestinon and prednisone. 7. History of prostatic carcinoma status post radiation therapy with normal PSA in December 2016 8. Ascites and omental seeding from his gastric carcinoma with increased pain secondary to above. He presented in January 2016 with positive omental biopsy, gastric outlet obstruction requiring feeding tube and began chemotherapy February 2016 with cis-[place]. Currently taking food and fluids orally, but poor appetite, and now with painful oral lesions interfering with eating. Plan Daughter with patient later in the day. Patient is leaning towards Hospice Care - states " I just want to be warm and watch TV. I have had a lot happen in the last couple of years...just kind of tired of it all." Reviewed again treatment/ care options of palliative care or hospice care. Both focus on his comfort. Informed if hospice care, will no longer give aggressive treatments. He expects son to be here later. Daughter is here now. Will have manager rn case talk with patient/daughter and arrange informational visit for palliative care/ hospice care. Discussed with Dr. Monroe. - Time Spent With Patient Total time spent is greater than 50% in coordination of care (as documented) at patient's floor/unit and/or counseling patient: 25 - 35 minutes Sepsis Assessment - Evaluation Sepsis screening result: Sepsis Risk
[2017-03-15] MEDS: FLUCONAZOLE PB 100 MG/50 ML BAG IV SCH (14:26)
[2017-03-15] MEDS: HYDROCODONE/APAP 5mg/325mg TABLET PO PRN (18:15)
--- NOTE | 2017-03-15 20:33 | Progress Note ---
Subjective: Mr. Spears was seen several times during the day. He reported having approximately 3 soft stools yesterday. He denied nausea or vomiting but continues to have poor appetite and little oral intake. He denied dyspnea or fever and complaints of generalized weakness. Nursing reported that he is been refusing all medications today. When I spoke with him initially he indicated that he wants to discuss future plans with his son and was undecided about palliative care versus hospice. He subsequently declined all medications including IV antibiotics and antifungal treatments. Objective Vital signs: Temperature 98.9 F 03/15/17 16:00 Pulse Rate 120 H 03/15/17 16:24 Respiratory Rate 20 03/15/17 16:00 Blood Pressure 113/79 03/15/17 16:00 Pulse Oximetry 92 03/15/17 16:24 Oxygen Delivery Method Room Air EXAM General-NAD, soft spoken HEENT-conjunctiva clear, oropharynx clear without evidence of residual thrush, lip swollen with superficial ulcers at the periphery Lungs-respirations nonlabored, good airflow, breath sounds clear anteriorly Cardiac-regular rhythm, S1 and S2 Abd-soft, nontender, diminished bowel sounds Ext-+1 edema 4 extremities Neuro-generalized weakness, no tremor Psych-flat affect but cooperative - Weight: 60.7 kg Results - Labs CBC & Chem 7: 03/15/17 04:12 03/15/17 04:12 Labs: Segs 40, bands 38, lymphocytes 16 Microbiology Results: Microbiology 03/11/17 14:10 Cath/Port/Line/Picc Blood Culture - Preliminary No Growth After 4 Days 03/11/17 14:10 Peripheral/Iv Start Blood Culture - Preliminary No Growth After 4 Days 03/08/17 23:36 Peripheral/Iv Start Blood Culture - Final No Growth After 5 Days 03/08/17 23:37 Peripheral/Iv Start Blood Culture - Final No Growth After 5 Days Assessment and Plan (1) Sepsis Current visit: Yes Status: Acute (2) Neutropenic fever Current visit: Yes Status: Acute (3) C. difficile colitis Current visit: Yes Status: Acute (4) Pancytopenia Current visit: Yes Status: Acute (5) HTN (hypertension) Current visit: Yes Status: Chronic (6) Myasthenia gravis Current visit: Yes Status: Chronic (7) Chronic steroid use Current visit: Yes Status: Chronic (8) Hypothyroid Current visit: Yes Status: Chronic (9) Gastric cancer Current visit: Yes Status: Chronic (10) Hypokalemia Current visit: Yes Status: Acute (11) Electrolyte imbalance Current visit: Yes Status: Acute (12) Thrush Current visit: Yes Status: Acute Assessment and Plan: Neutropenia/neutropenic fever have resolved. Cefepime and filgrastim discontinued 03/14. Critical hypokalemia again present today-IV and oral replacement ordered but patient is declining all treatment including spironolactone and IV potassium supplement. We will reassess tomorrow if patient is open to therapy. Patient also declining treatment for C. difficile colitis, thrush, and probable herpes labialis. He additionally is declining chronic therapy for myasthenia gravis including prednisone. Plans discussed with the patient's son/DPOA who indicated he believes his father is tired of fighting and plans hospice as per their discussion yesterday. Consult with [facility] requested. Unclear that patient could be safely managed in the home environment at this time-may require hospice house in [place]. Discussed with case management. Discussed with oncology. Greater than 35 minutes spent in patient care-majority of time spent in discussion/counseling/discharge planning with patient and his son. Sepsis Assessment - Evaluation Sepsis screening result: No Definite Risk Hospital Course Summary Disclaimer: The visit summary below is not to be considered part of the above Progress Note. Hospital Course: 03/09/17 12:12 Pt admitted yesterday evening with sepsis from c. diff colitis and neutropenic fever. Severely neutropenic with ANC <500, on broad spectrum abx with vanc + cefepime for that plus flagyl for c. diff. INR was a bit elevated so DIC work up was done and it was mostly unremarkable but will cont. to monitor. Pt has chronic use of steroids so we stress dosed the steroids. Pt feels much better this am. Will discuss case with oncology for plan of care and for possible descalation of abx. 03/10/17 12:04 Pt clinically doing better with improving diarrhea and overall reports feeling better but his pancytopenia not improving. Hgb dropped to 6.2 so will give 1u pRBC, plts cont. to be in high 20s and may need platelets soon, WBC also staying around 0.3-0.4. Will cont. oral vanc and flagyl for c. diff and cefepime for severe neutropenia. Will cont. to monitor closely. Discussed case with and he will see the pt today. 03/11/17 13:11 Pt clinically stable, pancytopenia continues to worsen although pt looks better from infectious standpoint, filgastrim started yesterday, will give blood products as appropriate, cont. abx tx for c. diff and severe neutropenia, will cont. to monitor closely, case discussed with . 03/12/17 16:45 Clinically stable, white count unchanged but platelet count slightly improved. Filgastrim dose increased to 600 g daily per oncology request. Profound hypokalemia-IV/by mouth supplementation. Thrush evident-IV Diflucan initiated. Blood pressure modestly elevated, amlodipine resumed. 03/13/17 14:59 Sepsis 2/2 C. diff colitis -Abx-->cefepime D6 + flagyl D6 + Oral vanc D5 Increase Flagyl to TID for C.Diff dosing. Need to stop the probiotics due to immunosuppresion. Neutropenic Fever -Fever resolved with c. diff tx -ANC 280-->192-->104-->96 -will cont. abx per above Pancytopenia -Likely 2/2 chemo tx. Hgb--stable, s/p 1u pRBC, monitor -Plt--28K, improved today, monitor closely, will give plts if <20, will discuss with oncology -WBC-->0.4-->0.3-->0.2-->0.2 today, abx per above, filgrastim started 03/10 per Hem/onc-dose increased to 600 g daily per oncology request -INR elevated, DIC panel not consistent with dic with nml ptt and fibrinogen but D-dimer is elevated -LDH wnls, haptoglobin high, peripheral smear pending -Lymphocyte count is trending up. Monitor. Metastatic Gastric Cancer -Follows with , discussed case with Dr. Clements -Last chemo on 03/02 -Pt. is consider stopping aggressive therapy. Myasthenia Gravis -Stable -On prednisone at home, stress dose steroids with 100mg Q8H hydrocortisone initiated on admission-taper to 50 mg Q8H -Cont. pyridostigmine Hypothyroid -Cont. home levothyroxine -TSH mildly elevated, T4 pending HTN -Amlodipine held on admission, blood pressure consistently elevated past 24 hours. -Amlodipine resumed, BP is running high normal Hypokalemia -Persistent hypokalemia since admission, profoundly low today requiring IV/by mouth supplementation. -Continue replacement, recheck later tonight and in a.m. -Pt is not wanting to take oral potassium halfway in large doses. Will add Aldactone BID given edema, BP should support it. He is dehydrated due to poor PO intake- add IVF with KCL and KPO4. Decrease oral potassium to BID. Repeat Renal panel today at 6pm. He will need close follow up of potassium levels given addition of Aldactone. Mg is normalized, but will repeat tomorrow. Thrush -IV Diflucan initiated 03/12 -Depression/Poor appetite Add low dose Remeron to see if there is any improvement. Ppx -DVT-SCDs, low plts 03/14/17 17:25 Neutropenia has resolved-ANCA 2660 today. Subsequently cefepime and filgrastim have been discontinued. Above discussed with Dr. cMclendon. Continue treatment for C. difficile colitis and thrush; exam suggestive of herpetic infection of the lips-valacyclovir initiated. Dr. Mcclendon has had the opportunity discussed patient's care plans-he wishes to focus on palliative care and possibly hospice but will need to discuss this further with patient's son who was unavailable this afternoon. Patient indicated desire to discharge to his son's home in [place]. PT to evaluate. One unit of packed red blood cells being transfused today-reassess hemoglobin posttransfusion. Potassium significantly improved, oral replacement discontinued-continue spironolactone and reassess potassium with posttransfusion hemoglobin. 03/15/17 20:41 Patient declining all therapies today. Hospice consult pending. May be too weak to discharge home with his son.
[2017-03-15] MEDS: MIRTAZAPINE 15 MG TABLET PO SCH (22:09)
[2017-03-15] MEDS: TAMSULOSIN 0.4 MG CAPSULE PO SCH (22:09)
[2017-03-16] MEDS: MetroNIDAZOLE PB 500 MG/100 ML BAG IV SCH ×2 (03:25→07:37)
[2017-03-16] MEDS: VANCOMYCIN 250mg/5ml ORAL LIQ PO SCH ×2 (03:25→09:22)
[2017-03-16] MEDS: HYDROCODONE/APAP 5mg/325mg TABLET PO PRN ×2 (04:10→13:32)
[2017-03-16] MEDS: LEVOTHYROXINE 75 MCG TABLET PO SCH (06:42)
[2017-03-16 07:33] VITALS: BP 117/72; PULSE 72; RESP 12; TEMP 97.3; O2SAT 93
[2017-03-16] MEDS: PredniSONE 20 MG TABLET PO SCH (07:37)
[2017-03-16] MEDS: FERROUS SULFATE 324 MG TABLET PO SCH (07:37)
[2017-03-16] MEDS: PYRIDOSTIGMINE 60 MG TABLET PO SCH ×2 (07:38→11:29)
[2017-03-16] MEDS: SPIRONOLACTONE 25 MG TABLET PO SCH (09:21)
[2017-03-16] MEDS: AMLODIPINE 5 MG TABLET PO SCH (09:21)
[2017-03-16] MEDS: CALCIUM CARBONATE 600 MG TABLET PO SCH (09:21)
[2017-03-16] MEDS: MAGNESIUM OXIDE 400 MG TABLET PO SCH (09:21)
[2017-03-16] MEDS: CYANOCOBALAMIN (B-12) 500mcg TABLET PO SCH (09:22)
[2017-03-16] MEDS: MULTI-VITAMIN + MINERAL TABLET PO SCH (09:22)
[2017-03-16] MEDS: VALACYCLOVIR 500 MG TABLET PO SCH (09:22)
--- NOTE | 2017-03-16 12:24 | Discharge Instructions ---
Discharge Plan - Med Rec/Dispo Referrals/Follow Up: Marin Mcclendon MD [Physician] - Peter Instructions: Hypokalemia (GEN) Prescriptions: New Acyclovir Oint [Zovirax Oint] 5 applic TP 5XD #1 tube Mirtazapine [Remeron] 7.5 mg PO HS #14 tablet PredniSONE [Deltasone] 20 mg PO WB tablet Valacyclovir [Valtrex] 1,000 mg PO BID #7 tablet Vancomycin Oral Liq 125 mg PO Q6HR #28 po.syringe Hydrocodone/APAP 5/325 [[place] 5/325] 1 - 2 tab PO Q4H PRN #20 tablet PRN Reason: Pain Nystatin Oral Liq. [Mycostatin] 5 ml PO QID #150 ml Continue Tamsulosin [Flomax] 0.4 mg PO HS Levothyroxine Tab [Synthroid] 75 mcg PO DAILY PredniSONE [Deltasone] 40 mg PO WB Pyridostigmine [Mestinon] 30 mg PO TID Hydrocodone/APAP 5/325 [[place] 5/325] 1 - 2 tab PO Q4HR PRN PRN Reason: Pain Discontinued Calcium Carbonate 600 mg PO DAILY Cholecalciferol [Vitamin D-3] 1 tab PO DAILY Docusate Sodium [Colace] 2 cap PO DAILY Cyanocobalamin (Vitamin B-12) [Vitamin B-12] 1 tab PO DAILY Ferrous Sulfate 65 mg PO DAILY Amlodipine [Norvasc] 5 mg PO DAILY Magnesium Oxide [Magnesium] 400 mg PO BIDWM Pqaml-Kzbjvlv-Pfiutaiv Tablet 1 tab PO DAILY Potassium Chloride ER Tab [K-Dur] 1 tab PO TIDWM Discharge Instructions/Outpatient Orders: Final Provider Discharge Instructions Location: Determined By Patient - Disposition 50 Discharged To Hospice-Home
--- NOTE | 2017-03-16 12:47 | Extended Care Facility Orders ---
Admission Orders Admit to:: Hospice Allergies/Adverse Reactions: Allergies No Known Allergies Allergy (Verified 03/08/17 19:25) Admitting Diagnosis: Hypokalemia Admitting Physician: Sindi Monroe MD Attending Physician: Sindi Monroe MD Code Status: Do Not Resuscitate Anticiapted Length of Stay: 30 days or less Rehab Potential: poor Rehab Prognosis: poor Diet: soft-nutritional supplements of choice Correction Certification: I certify that SNF services are required to be given on an Inpatient basis because of the patients need for shelter care on a continuing basis for the condition(s) for which he/she received inpatient hospital services prior to his/her transfer to the SNF. SNF inpatient care is necessary for the following reasons Indication for Correction: Not Applicable - Additional Information In Event of Arrest: Do Not Start CPR Resident is Aware of Diagnosis: Yes Referrals: Marin Mcclendon MD [Physician] - Additional Orders: hospice protocol
--- NOTE | 2017-03-16 16:52 | Progress Note ---
Oncology Subjective Feeling slightly better. Wants to go to hospice house Breaking out on present lips consistent with herpes. Review of Systems Constitutional: No weight gain, + weight loss, no fever, + appetite changes, + fatigue/tiredness. ENT/Mouth: No vision changes,+difficulty swallowing, +mouth sores/pain, no nasal drainage, no nasal bleeding. Cardiovascular: No palpitations, no chest pain, no swelling. Respiratory: No cough, no shortness of breath, no coughing up blood, no wheezing. Gastrointestinal: No abdominal pain, no blood in stool, no constipation, no diarrhea, no heartburn, no nausea, no vomiting. Genitourinary: No burning with urination, no difficulty urinating, no urinary incontinence. Musculoskeletal: No pain, +weakness. Skin: + skin rash or sores. Neurological: No confusion, no dizziness, Psychiatric: No anxiety, no depression, no mood changes, no sleep difficulty. Endocrine: No hot flashes. Lymphatic: No enlarged lymph nodes. Exam Vital signs: Temperature 97.3 F 03/16/17 07:00 Pulse Rate 72 03/16/17 07:00 Respiratory Rate 12 03/16/17 07:00 Blood Pressure 117/72 03/16/17 07:00 Pulse Oximetry 93 03/16/17 07:00 Oxygen Delivery Method Room Air Narrative: Alert male with sores on lips in NAD - Constitutional no acute distress - Routine HEENT Exam Head: Present: normocephalic Eye: Present: EOMI, PERRL ENT: Present: mucous membranes dry (Herpetic lesions on lips. ) - Routine Neck Exam Present: supple. Absent: lymphadenopathy - Routine Respiratory Exam Present: CTA bilaterally. Absent: accessory muscle use - Routine Cardiovascular Exam Present: RRR, no murmur - Routine Abdominal Exam Present: soft, normoactive bowel sounds, distended. Absent: tenderness - Routine Extremities Exam Present: edema - Routine Skin Exam Present: petechiae, ecchymosis - Routine Neurological Exam Present: alert, oriented X3 - Routine Psychiatric Exam Present: normal affect Oncology Results - Labs CBC & Chem 7: 03/15/17 04:12 03/15/17 04:12 Assessment and Plan (1) Neutropenic fever Status: Acute (2) C. difficile colitis Status: Acute (3) Pancytopenia Status: Acute (4) Gastric cancer Status: Chronic (5) Oral pharyngeal candidiasis Status: Acute (6) Anemia Status: Acute (7) Thrombocytopenia Status: Acute (8) Protein-calorie malnutrition Status: Acute Assessment and Plan: 1. C. difficile colitis with inflammation of the colon. 2. Gastric carcinoma with progressive disease with ascites and omental implants on CT scan from mid January 2017 initial therapy was with cisplatin 5-FU now with progressive disease on Camptosar. Camptosar administered on 03/02/17 at 2 level dose reduction because of prior neutropenia with Camptosar on 02/11/17. Patient is homozygous for UTUA1G. initial dose was reduced from 150-1 25/m. Results of this came back after first dose. He did have neutropenia and thrombocytopenia with a first dose. Second dose was given at 100 mg/m. 3. Severe neutropenia with colitis. Cultures negative so far. On broad-spectrum antibiotics. G-CSF was given for several days. WBCs recovering; Granix has been stopped. 4. Thrombocytopenia. This is multifactorial secondary to his disease. 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 Platelets 32K today, slowly improving. 5. Anemia secondary to probable GI blood loss and chemotherapy. Status post transfusion 1 unit packed RBC last week and 1unit packed RBC's yesterday with hemoglobin 7.2. Hemoglobin 8.9 03/15. 6. Myasthenia gravis currently on Mestinon and prednisone. 7. History of prostatic carcinoma status post radiation therapy with normal PSA in December 2016 8. Ascites and omental seeding from his gastric carcinoma with increased pain secondary to above. He presented in January 2016 with positive omental biopsy, gastric outlet obstruction requiring feeding tube and began chemotherapy February 2016 with cis-chenega. Currently taking food and fluids orally, but poor appetite, and now with painful oral lesions interfering with eating. Patient has elected to go to [facility] [place]. Will transfer there this afternoon. Plan Discussed with Daughter in law, son and patient. Hospice Care- states " I just want to be warm and watch TV at [facility]. I Discussed with Dr. Monroe. - Time Spent With Patient Total time spent is greater than 50% in coordination of care (as documented) at patient's floor/unit and/or counseling patient: 25 - 35 minutes Sepsis Assessment - Evaluation Sepsis screening result: No Definite Risk
--- NOTE | 2017-03-16 17:01 | Discharge Summary ---
Discharge Information Date of admission: 03/08/17 18:17 Anticipated date of discharge: 03/16/17 Attending Physician: Sindi Monroe MD Primary care physician: REEMA JANE Consults: Marin Mcclendon - Discharge Diagnosis (1) Sepsis Status: Acute (2) Neutropenic fever Status: Acute (3) C. difficile colitis Status: Acute (4) Pancytopenia Status: Acute (5) HTN (hypertension) Status: Chronic (6) Myasthenia gravis Status: Chronic (7) Chronic steroid use Status: Chronic (8) Hypothyroid Status: Chronic (9) Gastric cancer Status: Chronic (10) Hypokalemia Status: Acute (11) Thrush Status: Acute - Laboratory Labs: Admission labs in 03/08/17 included white count of 0.4 with 60 neutrophils, 28 bands, 36 lymphocytes, 4 monocytes, 8 metamyelocytes, 4 myelocytes, and 4 basophils; hemoglobin 7.5, and platelet count 35,000. Admission potassium 3.1, creatinine 0.8, liver enzymes unremarkable, TSH 5.01. 03/15/17 04:12 03/15/17 04:12 - Microbiology Microbiology 03/08/17-C. difficile toxin positive 03/11/17 14:10 Cath/Port/Line/Picc Blood Culture - Final No Growth After 5 Days 03/11/17 14:10 Peripheral/Iv Start Blood Culture - Final No Growth After 5 Days 03/08/17 23:36 Peripheral/Iv Start Blood Culture - Final No Growth After 5 Days 03/08/17 23:37 Peripheral/Iv Start Blood Culture - Final No Growth After 5 Days - Radiology Radiology: PA and lateral chest x-ray in admission demonstrated chronic left sided rib fractures but no acute cardiopulmonary disease. History of Present Illness HPI: is a 81 y.o. male with PMH significant for metastatic gastric cancer that he is undergoing chemo therapy for with . He recently had another cycle a few days ago. Pt presented to [facility] with n/v/d for 1-2 days and also had pancytopenia on labs. was notified and he recommended pt be transferred to [facility] so oncology team could follow along. This evening pt reports he's feeling okay. Reports 3-4 diarrhea events per day in the last 1-2 days and the more coughing with sputum production the vomiting. Denies any cp, sob, f/c. Reports he's been eating well. Hospital Course This is a general summary of the patient's hospital course. For more details refer to the complete medical record. Hospital course: Mr. Spears was admitted with sepsis from C. difficile colitis and neutropenic fever. He was severely neutropenic on admission and was started on broad- spectrum antibiotics with vancomycin and cefepime for neutropenic fever and IV Flagyl for C. difficile colitis. Dr. Mcclendon was consulted for assistance with managing the patient's neutropenia and underlying malignancy. Filgastrim was initiated to stimulate white count on 03/10 and does subsequently increased due to persistent pancytopenia. White count finally began to climb on 03/14 after which the bone marrow stimulant was discontinued. He received a total of 2 units of packed red blood cells during the hospitalization. Platelet count was low consistently but the patient had no bleeding of significance and platelets were not necessary. At discharge white count had increased to a little over 10, 000 with absolute neutrophil count in excess of 8000. Antibiotics were deescalated after blood cultures were negative after 48 hours with conversion to oral vancomycin for C. difficile. IV metronidazole was continued and cefepime continued until ANC exceeded 1500. Diarrhea improved progressively through the hospitalization. Profound hypokalemia developed during the hospital stay requiring IV and oral supplementation. Spironolactone was initiated to minimize potassium wasting as hypokalemia continued after diarrhea subsided. The patient had difficulty swallowing oral potassium and required liquid formulations and later refused any oral potassium. On day prior to discharge the patient refused IV potassium as well. Stress dose steroids were utilized in place of chronic oral prednisone taken for myasthenia gravis on admission with subsequent taper and resumption of home dose prednisone. The patient's clinical status was poor with poor performance status and progressive weakness. He and family indicated goal to simply focus on maintaining patient comfort. Patient decided against further chemotherapy. After 03/14 patient refused virtually all medications including medications that were largely for symptom management. Hospice was consulted and the [facility] was [facility] [place]. He transferred to inpatient hospice care on 03/16. On the date of discharge the patient was fatigued but denied pain or dyspnea. Abdomen was soft and nontender although slightly distended. There is +1 peripheral edema. His son was at bedside and had spoken with [facility] regarding discharge plans. The patient's son advised the patient of the plan to discharge to inpatient hospice. Dr. Mcclendon aware of discharge plans-concurs with plan. Time spent with patient: Greater than 35 minutes Discharge Plan - Med Rec/Dispo Referrals/Follow Up: Marin Mcclendon MD [Physician] - Peter Instructions: Hypokalemia (GEN) Prescriptions: New Acyclovir Oint [Zovirax Oint] 5 applic TP 5XD #1 tube Mirtazapine [Remeron] 7.5 mg PO HS #14 tablet PredniSONE [Deltasone] 20 mg PO WB tablet Valacyclovir [Valtrex] 1,000 mg PO BID #7 tablet Vancomycin Oral Liq 125 mg PO Q6HR #28 po.syringe Hydrocodone/APAP 5/325 [[place] 5/325] 1 - 2 tab PO Q4H PRN #20 tablet PRN Reason: Pain Nystatin Oral Liq. [Mycostatin] 5 ml PO QID #150 ml Continue Tamsulosin [Flomax] 0.4 mg PO HS Levothyroxine Tab [Synthroid] 75 mcg PO DAILY PredniSONE [Deltasone] 40 mg PO WB Pyridostigmine [Mestinon] 30 mg PO TID Hydrocodone/APAP 5/325 [[place] 5/325] 1 - 2 tab PO Q4HR PRN PRN Reason: Pain Discontinued Calcium Carbonate 600 mg PO DAILY Cholecalciferol [Vitamin D-3] 1 tab PO DAILY Docusate Sodium [Colace] 2 cap PO DAILY Cyanocobalamin (Vitamin B-12) [Vitamin B-12] 1 tab PO DAILY Ferrous Sulfate 65 mg PO DAILY Amlodipine [Norvasc] 5 mg PO DAILY Magnesium Oxide [Magnesium] 400 mg PO BIDWM Tkgew-Fdhpflr-Pxqlxzga Tablet 1 tab PO DAILY Potassium Chloride ER Tab [K-Dur] 1 tab PO TIDWM Discharge Instructions/Outpatient Orders: Final Provider Discharge Instructions Location: Determined By Patient - Disposition 50 Discharged To Hospice-Home
== END 2017-03-16 14:05 | disposition hospice, inpatient (51) ==
LOC: MED 18:17
PROVIDERS: ADMIT Internal Medicine; ATTEND Internal Medicine